=== PATIENT | female | born 1960 | race Caucasian/White ===

== ENCOUNTER 2016-10-11 18:25 | Emergency (ER) | payer OTHER ==
[2016-10-11 18:55] VITALS: BP 143/77
--- NOTE | 2016-10-11 20:46 | UC ---
Bre Resendez Janilya, scribed for Natalia Mercedes MD on 10/11/16 at 1939 . General HPI - HPI Summary HPI Summary: A 56 y/o female came in to [facility] presenting w/ stomach aches starting today at approx 1500. Pt came home and took a nap. However, her condition did not improve. Pt reports nausea, chills, vomiting, and 3 episodes of diarrhea that started at 1800. Denies fever, MEDEROS, rash, urinary problems. Pt took Zofran approx at 1800. There are no family members who have similar conditions. Wants to vomit, but can't (states 2/2 previous surgery). 3 episodes watery diarrhea, no melena / brbpr. Thinks better now (?) No urinary c/o's. No rash. No cp / palpitations / sob. No fever. PMHx asthma, acid reflux PSHx zachary fundiplication surgery date unclear, est > 20 years ago. - History of Current Complaint Chief Complaint: UCGI Stated Complaint: DIARRHEA Hx Obtained From: Patient Onset/Duration: Sudden Onset, Lasting Hours, Still Present Timing: Constant Onset Severity: Moderate Current Severity: Moderate Associated Signs & Symptoms: Positive: Abdominal Pain, Diarrhea, Nausea, Vomiting, Weakness. Negative: Cough, Fever, Headache - Allergy/Home Medications Allergies/Adverse Reactions: Allergies Allergy/AdvReac Type Severity Reaction Status Date / Time Ibuprofen Allergy Hallucinati Verified 06/03/16 10:28 ons Penicillins Allergy Unknown Verified 06/03/16 10:28 Reaction Details Sulfa Antibiotics Allergy Constipatio Verified 06/03/16 10:28 n PMH/Surg Hx/FS Hx/Imm Hx Previously Healthy: No - see hpi. +hx surgeries, none recent Endocrine History Of: Denies: Diabetes, Thyroid Disease Cardiovascular History Of: Denies: Cardiac Disorders, Hypertension, Pacemaker/ICD Respiratory History Of: Reports: Asthma Denies: COPD GI/ History Of: Denies: Ulcer Cancer History Of: Denies: Breast Cancer - Surgical History Surgical History: Yes Surgery Procedure, Year, and Place: HYSTERECTOMY. GALLBLADDER. ZACHARY FUNDOPLICATION more than 20 years ago. LAPARSCOPIC - Family History Known Family History: Positive: Hypertension Negative: Cardiac Disease, Diabetes - Social History Occupation: Employed Full-time Lives: With Family Alcohol Use: None Substance Use Type: None Smoking Status (MU): Never Smoked Tobacco Review of Systems Constitutional: Chills, Fatigue Skin: Negative Eyes: Negative ENT: Negative Respiratory: Negative Cardiovascular: Negative Gastrointestinal: Abdominal Pain, Vomiting, Diarrhea Genitourinary: Negative Motor: Negative Neurovascular: Negative Musculoskeletal: Negative Neurological: Negative Psychological: Negative All Other Systems Reviewed And Are Negative: Yes Physical Exam Triage Information Reviewed: Yes Appearance: Well-Nourished - looks pale. non-diaphoretic, Ill-Appearing, Pain Distress, Obese Vital Signs: Initial Vital Signs Temp 98.2 F 10/11/16 18:50 Pulse 90 10/11/16 18:50 Resp 18 10/11/16 18:50 BP 143/77 10/11/16 18:50 Pulse Ox 94 10/11/16 18:50 Vital Signs Reviewed: Yes Eye Exam: Normal ENT Exam: Normal Neck exam: Normal - no adenopathy appreciated Respiratory Exam: Normal - no dyspnea, no tachypnea, normal respiratory rate Respiratory: Positive: Chest non-tender, Lungs clear, Normal breath sounds, No respiratory distress, No accessory muscle use Cardiovascular Exam: Normal - Heart rate regular, good general skin color, good capillary refill Cardiovascular: Positive: RRR, No Murmur, Pulses Normal, Brisk Capillary Refill Abdominal Exam: Other - + bs, hyperactive. + guarding upper abd. No focal tenderness, general tenderness throughout. No cvat appreciated. Bowel Sounds: Positive: Present Musculoskeletal Exam: Normal - grossly normal. moves all 4 ext's ok. slow ambulation 2/2 pain. Neurological Exam: Normal - nonfocal and grossly intact Psychological Exam: Normal - conversing appropriately Skin Exam: Normal - no reported or visible rashes looks pale non-diaphoretic Course/Dx - Course Course Of Treatment: Considered diff dx's below. Pt is very uncomfortable, looks sick. Already took zofran, but "didn't help.". Recommend transfer to ED for further evaluation and treatment. D/w pt, she expresses understanding and agreement. Will go via EMS. Mr and Ms. Odom were given the opportunity to ask questions, to which I answered to the best of my ability. D/w Dr. Pablo (ED physician at [facility]) at 19:47. Acute abd pain. Nausea. Diarrhea. Volume depletion - Differential Dx - Multi-Symptom Provider Diagnoses: see above. acute abd pain. nausea. diarrhea. volume depletion Discharge - Discharge Plan Condition: Stable Disposition: TRANS HIGHER LVL OF CARE FAC Referrals: Abdias Paul MD [Primary Care Provider] - Additional Instructions: Seek medical attention if symptoms persist/worsen or if new problems develop. The documentation as recorded by the Bre guzman Janilya accurately reflects the service I personally performed and the decisions made by me, Natalia Mercedes MD.
[2016-10-11] MEDS ORDERED: NS 0.9% 500 ML* 500 ML IV SCH (21:00)
== END 2016-10-11 20:42 | disposition short-term general hospital (02) ==
LOC: UCEAST 18:25
DX: R10.10 Upper abdominal pain, unspecified (principal); R11.0 Nausea; R19.7 Diarrhea, unspecified; E86.9 Volume depletion, unspecified; Z88.6 Allergy status to analgesic agent; Z88.0 Allergy status to penicillin; Z88.2 Allergy status to sulfonamides; Z90.49 Acquired absence of other specified parts of digestive tract
CPT/HCPCS: 99213; G0463

== ENCOUNTER 2016-10-11 20:50 | Emergency (ER) | payer OTHER ==
[2016-10-11] MEDS ORDERED: NS 0.9% 1000 ML* 2,000 ML IV ONE (21:36)
[2016-10-11] MEDS ORDERED: Ondansetron INJ* 2 MG/ML VIAL IV ONE (22:03)
[2016-10-11] MEDS ORDERED: Morphine INJ* 4 MG/ML 1 ML CARPUJECT IV ONE (22:03)
[2016-10-11 22:26] LABS: Albumin 4.3 g/dL (3.2-5.2); BUN/Creatinine Ratio 13.9 (8-20); C Reactive Protein 4.8 mg/L (< 5.00); Calcium 9.4 mg/dL (8.6-10.3); EGFR African American 73.2 (>60); EGFR Non-African American 56.9 (>60); Globulin 2.9 g/dL (2-4); Total Bilirubin 0.3 mg/dL (0.2-1.0); Total Protein 7.2 g/dL (6.4-8.9)
[2016-10-11] MEDS ORDERED: NS 0.9% 1000 ML* 1,000 ML IV ONE (22:31)
[2016-10-11 22:33] LABS: Hematocrit 42 % (35-47); Hemoglobin 13.5 g/dl (12.0-16.0); Mean Corpuscular HGB Conc 33 g/dl (31-36); Mean Corpuscular Hemoglobin 30 pg (27-31); Mean Corpuscular Volume 92 fL (80-97); Mean Platelet Volume 8 um3 (7.4-10.4); Red Blood Count 4.53 10^6/ul (4.0-5.4); Red Cell Distribution Width 14 % (10.5-15); White Blood Count 15.6 10^3/ul (3.5-10.8)
[2016-10-11] MEDS ORDERED: Iodixanol* (CONTRAST) 320 MG/ML 100 ML SDV IV ONE (22:45)
[2016-10-11 22:50] LABS: Urine Bilirubin Negative (Negative); Urine Glucose Negative (Negative); Urine Nitrite Negative (Negative)
[2016-10-11] MEDS ORDERED: HYDROmorphone INJ* 1 MG/ML CARPUJECT SYRINGE IV ONE (23:35)
[2016-10-12] MEDS ORDERED: HYDROmorphone INJ* 1 MG/ML CARPUJECT SYRINGE IV ONE (00:44)
[2016-10-12] MEDS ORDERED: Ondansetron INJ* 2 MG/ML VIAL IV ONE (02:09)
[2016-10-12 03:02] VITALS: BP 134/63
--- NOTE | 2016-10-12 06:30 | ED ---
Ramsey Resendez Michael, scribed for Edwar Marquez MD on 10/11/16 at 2243 . GI/ HPI - HPI Summary HPI Summary: 56 y/o female was [facility] from [facility] presenting with nausea and diarrhea that started at 1800 today. The pt reports that the nausea started before the diarrhea, and since the onset of the diarrhea she has had 6-7 episodes. The nausea and diarrhea are aggravated with food and drinking. She also c/o abd cramping that is alleviated with BM. The pt denies arthralgia, vomiting, and hematuria. The PMHx is significant for IBS, GERD, anxiety, and depression. IF THERE IS ONE, PLEASE SEE DICTATION BY DR. MARQUEZ FOR FURTHER INFORMATION - History of Current Complaint Chief Complaint: EDNauseaVomitDiarrh Time Seen by Provider: 10/11/16 22:28 Stated Complaint: NVD Hx Obtained From: Patient, EMS, Medical Records Onset/Duration: Started Hours Ago, Still Present Timing: Constant Severity: Moderate Current Severity: Moderate Pain Intensity: 0 Pain Characteristics: Cramping Associated Signs and Symptoms: Positive: Negative - arthralgia, Nausea, Diarrhea , Abdominal Pain. Negative: Vomiting, Hematuria Aggravating Factor(s): Food Alleviating Factor(s): Bowel Movements - Allergy/Home Medications Allergies/Adverse Reactions: Allergies Allergy/AdvReac Type Severity Reaction Status Date / Time Ibuprofen Allergy Hallucinati Verified 06/03/16 10:28 ons Penicillins Allergy Unknown Verified 06/03/16 10:28 Reaction Details Sulfa Antibiotics Allergy Constipatio Verified 06/03/16 10:28 n PMH/Surg Hx/FS Hx/Imm Hx Endocrine/Hematology History: Denies: Hx Diabetes, Hx Thyroid Disease Cardiovascular History: Denies: Hx Hypertension, Hx Pacemaker/ICD Respiratory History: Reports: Hx Asthma Denies: Hx Chronic Obstructive Pulmonary Disease (COPD) GI History: Reports: Hx Gastroesophageal Reflux Disease, Hx Irritable Bowel Denies: Hx Ulcer Sensory History: Denies: Hx Hearing Aid Psychiatric History: Reports: Hx Anxiety, Hx Depression Denies: Hx Panic Disorder - Cancer History Hx Chemotherapy: No Hx Radiation Therapy: No - Surgical History Surgery Procedure, Year, and Place: HYSTERECTOMY. GALLBLADDER. MIKEL FUNDOPLICATION more than 20 years ago. LAPARSCOPIC Infectious Disease History: No Infectious Disease History: Denies: Hx Hepatitis, Hx Human Immunodeficiency Virus (HIV), Traveled Outside the [place] in Last 30 Days - Family History Known Family History: Positive: Hypertension Negative: Cardiac Disease, Diabetes - Social History Occupation: Employed Full-time Lives: With Family Alcohol Use: None Substance Use Type: Reports: None Smoking Status (MU): Never Smoked Tobacco Review of Systems Negative: Fever Positive: Abdominal Pain - cramping, Diarrhea, Nausea. Negative: Vomiting Negative: hematuria Negative: Arthralgia All Other Systems Reviewed And Are Negative: Yes Physical Exam - Summary Physical Exam Summary: Abdominal Exam GENERAL: Awake, alert, oriented, no acute distress, very pleasant HEENT: Head is normocephalic, atraumatic, anicteric sclera, pink conjunctiva, mucous membranes moist, no erythema, no discharge, no lesions, neck is supple, trachea is midline, no JVD CARDIAC: Regular rate and rhythm, S1, S2, no rub, no murmur, no gallop, 2+ radial and pedal pulses bilaterally RESPIRATORY: Clear to auscultation bilaterally with no rales, rhonchi, or wheezes, non-tender ABDOMEN: Bowel sounds positive, no bruit, soft, non-tender, no tenderness over McBurneys point, negative Madison sign, negative Psoas sign, 2+ femoral pulses , no CVA tenderness EXTREMITIES: No edema, warm, dry, moving all extremities in a grossly normal manner NEUROLOGICAL: Mood is appropriate, moving all extremities in a grossly normal manner SKIN: Pale Triage Information Reviewed: Yes Vital Signs On Initial Exam: Initial Vitals Temp Pulse Resp BP Pulse Ox 97.8 F 93 10 127/62 96 10/11/16 20:51 10/11/16 20:51 10/11/16 20:51 10/11/16 20:51 10/11/16 20:51 Vital Signs Reviewed: Yes Diagnostics - Vital Signs Vital Signs Temp Pulse Resp BP Pulse Ox 10/11/16 22:11 18 10/11/16 20:51 97.8 F 93 10 127/62 96 - Laboratory Lab Results: Lab Results 10/11/16 10/11/16 10/11/16 Range/Units 20:15 20:15 21:22 WBC 15.6 H TNP (3.5-10.8) 10^3/ul RBC 4.53 TNP (4.0-5.4) 10^6/ul Hgb 13.5 TNP (12.0-16.0) g/dl Hct 42 TNP (35-47) % MCV 92 TNP (80-97) fL MCH 30 TNP (27-31) pg MCHC 33 TNP (31-36) g/dl RDW 14 TNP (10.5-15) % Plt Count 379 TNP (150-450) 10^3/ul MPV 8 TNP (7.4-10.4) um3 Neut % (Auto) 84.0 H TNP (38-83) % Lymph % (Auto) 8.4 L TNP (25-47) % Graham % (Auto) 5.7 TNP (1-9) % Eos % (Auto) 0.7 TNP (0-6) % Baso % (Auto) 1.2 TNP (0-2) % Absolute Neuts (auto) 13.1 H TNP (1.5-7.7) 10^3/ul Absolute Lymphs (auto) 1.3 TNP (1.0-4.8) 10^3/ul Absolute Monos (auto) 0.9 H TNP (0-0.8) 10^3/ul Absolute Eos (auto) 0.1 TNP (0-0.6) 10^3/ul Absolute Basos (auto) 0.2 TNP (0-0.2) 10^3/ul Absolute Nucleated RBC 0 TNP 10^3/ul Nucleated RBC % 0 TNP Sodium 138 (133-145) mmol/L Potassium 4.0 (3.5-5.0) mmol/L Chloride 103 (101-111) mmol/L Carbon Dioxide 25 (22-32) mmol/L Anion Gap 10 (2-11) mmol/L BUN 14 (6-24) mg/dL Creatinine 1.01 H (0.51-0.95) mg/dL Est GFR ( Amer) 73.2 (>60) Est GFR (Non-Af Amer) 56.9 (>60) BUN/Creatinine Ratio 13.9 (8-20) Glucose 157 H (70-100) mg/dL Calcium 9.4 (8.6-10.3) mg/dL Total Bilirubin 0.30 (0.2-1.0) mg/dL AST 16 (13-39) U/L ALT 19 (7-52) U/L Alkaline Phosphatase 74 (34-104) U/L C-Reactive Protein 4.80 (< 5.00) mg/L Total Protein 7.2 (6.4-8.9) g/dL Albumin 4.3 (3.2-5.2) g/dL Globulin 2.9 (2-4) g/dL Albumin/Globulin Ratio 1.5 (1-3) Lipase 45 (11.0-82.0) U/L Result Diagrams: 10/11/16 21:22 10/11/16 20:15 Lab Statement: Any lab studies that have been ordered have been reviewed, and results considered in the medical decision making process. - CT CT ABD/PEL CT Interpretation: Positive (See Comments) - QUESTION OF GASTRIC POLYPS VERUS PROMINENT RUGAE. NONOBSTRUCTIVE GASEOUS DISTENTION OF THE STOMACH, A POSSIBLE SOURCE OF DISCOMFORT. NO INFLAMMATORY PROCESS IDENTIFIED IN THE ABDOMEN OR PELVIS. NO ABDOMINAL MASS, ADENOPATHY OR COLLECTION SEEN. CT Interpretation Completed By: Radiologist KACIE Course/Dx - Diagnoses Provider Diagnoses: Diarrhea, Abdominal pain, Gastric polyps Discharge - Discharge Plan Condition: Improved Disposition: HOME Patient Education Materials: Gastric Polyps (GEN) Referrals: Abdias Paul MD [Primary Care Provider] - Additional Instructions: You will follow up with Dr. Paul on Friday10/14/16 to rule out serious condition such as cancer. PLEASE RETURN TO THE EMERGENCY DEPARTMENT FOR NAUSEA, VOMITING, FEVER, PHOTOPHOBIA, CHEST PAIN, OR IF SYMPTOMS WORSEN. The documentation as recorded by the Ramsey guzman Michael accurately reflects the service I personally performed and the decisions made by me, Edwar Marquez MD.
--- NOTE | 2016-10-12 07:15 | RAD ---
INDICATION: Abdominal pain. COMPARISON: There are no prior studies available for comparison. TECHNIQUE: A CT scan of the abdomen and pelvis was performed with intravenous and oral contrast following intravenous injection of 100 ml of Visipaque 320 nonionic contrast. Contiguous axial sections were obtained from the lung bases through the symphysis pubis. Images were reconstructed in the coronal and sagittal planes. FINDINGS: The lung bases are clear. No pleural effusion is present. The liver and spleen are normal in size without significant focal abnormality. The patient is status post cholecystectomy. The pancreas appears to be within normal limits. The kidneys and adrenal glands are normal in size. No hydronephrosis is seen. No significant focal renal abnormality is seen. The aorta is normal in caliber with mild calcific plaque present. No significant enlarged retroperitoneal lymph nodes are seen. There is moderate gastric distention. There is suggestion of multiple small gastric polyps versus prominent gastric folds. There are surgical several surgical clips adjacent to the gastric fundus and cardia possibly from a prior Cortez fundoplication. The small bowel and colon appear nondistended. The appendix is not visualized. No inflammatory changes are seen in the right lower quadrant. There is mild descending and sigmoid diverticulosis without evidence for diverticulitis. The patient is status post hysterectomy. No free intraperitoneal air or fluid is seen. No significant focal osseous abnormality is seen. IMPRESSION: 1. MODERATE GASTRIC DISTENTION. IN ADDITION THERE IS SUGGESTION OF MULTIPLE SMALL GASTRIC POLYPS LESS LIKELY PROMINENT GASTRIC FOLDS. CONSIDER ENDOSCOPY FOR FURTHER EVALUATION. 2. STATUS POST CHOLECYSTECTOMY AND HYSTERECTOMY. 3. POSTSURGICAL CHANGES IN THE LEFT UPPER QUADRANT LIKELY FROM A PRIOR FUNDOPLICATION.
== END 2016-10-12 03:07 | disposition home or self-care (01) ==
LOC: ED 20:50
DX: K31.7 Polyp of stomach and duodenum (principal); R11.0 Nausea; R19.7 Diarrhea, unspecified; R10.9 Unspecified abdominal pain
CPT/HCPCS: 36415; 74177; 80053; 81003; 83690; 85025; 86140; 96374; 96375; 99283; J1170; J2270; J2405; Q9967

== ENCOUNTER 2018-05-21 16:07 | Emergency (ER) | payer OTHER ==
--- OUTSIDE RECORDS SUMMARY | 2018-05-21 16:16 | XMS REPORT ---
:1960 External Reference #:[id number] Author Organization [employer] Address [address] [place] [address] [place] [address] Phone [phone] Care Team Providers Name Role Phone Abdias Paul MD Primary Care Physician Unavailable Payers Type Date Identification Numbers Payment Provider Subscriber Commercial Policy Number: [id number] [employer] Rosangela Odom PayID: [id number] [address] [place] [address] Medigap Part B Effective: 2017 Policy Number: For Life Jeff Odom [id number] PayID: [id number] [address] [place] [address] Problems Description No Information Family History Date Family Member(s) Problem(s) Comments General Heart Disease General Cancer Social History Type Date Description Comments Lives With Occupation [employer] ETOH Use Denies alcohol use Smoking Patient has never smoked Exercise Type/Frequency Does not exercise regularly Allergies, Adverse Reactions, Alerts Date Description Reaction Status Severity Comments 04/11/2014 Penicillins active 04/11/2014 Sulfa Antibiotics active 04/11/2014 Ibuprofen active 04/11/2014 Ambien active hallucinations 04/11/2014 [place] active Medications Medication Date Status Form Strength Qnty SIG Indications Ordering Provider Diclofenac 04/23/ Active Gel 1% 100gm apply 4 Dorcas Sodium 2018 times Guan, daily as M.D. needed for pain Abilify 04/11/ Active Tablets 15mg 1 by mouth Dirk 2013 every day Omar Dinero Oxycodone-Acet / Active Tablets 5-325mg One tab as Unknown aminophen 0000 needed for knee pain up to 4 times per day Hydrocodone-Ac / Active Tablets 5-325mg 1 by mouth Unknown etaminophen 0000 every 4-6 hours prn migraine pain Montelukast / Active Tablets 10mg 1 tab by Unknown Sodium 0000 mouth every day Proair HFA / Active Aerosol 108(90Base 2 puffs by Unknown 0000 ) mcg/Act mouth every 4 hours as needed Clarinex / Active Tablets 5mg 1 by mouth Unknown 0000 every day Pantoprazole / Active Tablets DR 40mg 1 by mouth Unknown Sodium 0000 two times a day Alprazolam / Active Tablets 0.5mg 1 by mouth Unknown 0000 every evening Escitalopram / Active Tablets 20mg 1 by mouth Unknown Oxalate 0000 every day Modafinil / Active Tablets 200mg 2 by mouth Unknown 0000 every morning Aspirin / Active Tablets 81mg 1 by mouth Unknown 0000 every day Vitamin D High / Active Capsules 1000Unit 1 by mouth Unknown Potency 0000 every day Calcium 600+D / Active Unknown 0000 Fiber / Active one tab Unknown 0000 daily Flintstones / Active Unknown Plus Iron 0000 Fenofibrate / Active Tablets 48mg 1 by mouth Unknown 0000 every day Medications Administered in Office Medication Date Status Form Strength Qnty SIG Indications Ordering Provider Depomedrol Administered Injection Dorcas 40MG 018 Omar Guan Vital Signs Date Vital Result Comment 05/21/2018 Height 62 inches 5'2" Weight 185.00 lb Heart Rate 72 /min BP Systolic 100 mmHg BP Diastolic 68 mmHg Respiratory Rate 12 /min Pain Level 0 BMI (Body Mass Index) 33.8 kg/m2 04/23/2018 Height 62 inches 5'2" Weight 177.00 lb Heart Rate 60 /min BP Systolic Sitting 134 mmHg BP Diastolic Sitting 68 mmHg Pain Level 3 BMI (Body Mass Index) 32.4 kg/m2 11/12/2017 Height 62 inches 5'2" Weight 177.00 lb Heart Rate 66 /min BP Systolic 124 mmHg BP Diastolic 68 mmHg Respiratory Rate 16 /min Body Temperature 97.6 F Pain Level 4 BMI (Body Mass Index) 32.4 kg/m2 04/11/2014 Height 62 inches 5'2" Weight 178.00 lb Heart Rate 78 /min BP Systolic 138 mmHg BP Diastolic 80 mmHg BMI (Body Mass Index) 32.6 kg/m2 Results Description No Information Procedures Date CPT Code Description Status 05/21/2018 61028 Inject/Drain Joint/Bursa Small W/O US Completed 04/11/2014 02462 Rad Exam; Pelvis Completed Encounters Type Date Location Provider CPT E/M Dx Office Visit 04/23/2018 [facility] Dorcas Guan, 95534 M25.531 3:15p Of C.MNitza Nelson Office Visit 11/12/2017 [facility] Brianna Kasper, 02656 M79.641 1:30p Of C.M.[place] RPA-C Office Visit 04/11/2014 [facility] Agustín Dinero M.D. 19569 727.09 1:15p Of C.M.ALori Plan of Care 05/21/2018 - Dorcas Guan M.D.M25.531 Pain in right wristFollow up:Follow up : As [id number] Other articular cartilage disorders, right wrist
--- OUTSIDE RECORDS SUMMARY | 2018-05-21 16:17 | XMS REPORT ---
:1960 External Reference #:[id number] Author Organization [facility] Address [address] [place] [address] Phone [phone] Care Team Providers Name Role Phone Abdias Paul M.D. 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 Primary Care Physician Unavailable Payers Type Date Identification Numbers Payment Provider Subscriber Commercial Effective: Policy Number: [id number] [facility] Rosangela Odom 2014 Expires: 2018 PayID: [id number] [address] [place] [address] [facility] Effective: Policy Number: [facility] Rosangela Odom 2018 [id number] PayID: [id number] [address] [place] [address] [employer] Policy Number: [id number] [employer] / Jeff Odom PayID: [id number] [address] (Formerly ) [place] [address] [facility] Effective: Policy Number: [facility] Jeff Odom [id number] [facility] Expires: 2014 Group Number: [id number] [address] [place] [address] Problems Date Description Provider Status Onset: 09/25/2015 Body mass index (BMI) 32.0-32.9, adult Mario Mackey M.D. Active Onset: 09/25/2015 Mild persistent asthma Mario Mackey M.D. Active Onset: 09/25/2015 Allergic rhinitis due to pollen Mario Mackey M.D. Active Onset: 03/27/2015 Body Mass Index 33.0-33.9 Adult Mario Mackey M.D. Active Onset: 12/19/2014 Cough Mario Mackey M.D. Active Onset: 12/19/2014 Allergic rhinitis Mario Mackey M.D. Active Onset: 10/10/2014 Cough Mario Mackey M.D. Active Onset: 10/10/2014 Rhinitis Allergic Due To Other Allergen Mario Mackey M.D. 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 Home Environment Has central air Home Environment Stairs are present Home Environment Unfinished Basement Home Environment The basement is dry Home Environment Cotton Comforter Home Environment Mattress is 1 year old Home Environment Mattress is encased in an allergy proof case Home Environment Rubber Mattress Home Environment Pillows are encased in an allergy proof case Home Environment Pillows are polyester Home Environment Does not use a dehumidifier Home Environment There are draperies in the home Home Environment The home is felisa Home Environment The floors are carpeted Home Environment The floors are wood Home Environment Uses propane gas heating Home Environment [place] Home Environment Water Source: Well Smoke-Free Home is smoke-free Smoke-Free Work is smoke-free 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 ETOH Use Denies alcohol use Smoking Patient has never smoked Recreational Drug Use Denies Drug Use Allergies, Adverse Reactions, Alerts Date Description Reaction Status Severity Comments 01/15/2013 Penicillin active 01/15/2013 Amoxicillin active 01/15/2013 Ibuprofen active halucinations 01/15/2013 Sulfa active Medications Medication Date Status Form Strength Qnty SIG Indications Ordering Provider Spiriva 11/17/ Active Aerosol 1.25mcg/Ac 4gm 2 puffs once J45.30 Lyudmila Respimat 2018 t daily ANGIE Díaz Asmanex 10/10/ Active Aerosol 220mcg/Inh 3units 2 puff once J30.2 Lyudmila Twisthaler 60 2015 a day Uldrich, Metered Doses [employer]OL SYSTEMS DEVELOPER-C Montelukast 09/08/ Active Tablets 10mg 90tabs take 1 Lyudmila Sodium 2013 tablet every Uldrich, evening [employer] SYSTEMS DEVELOPER-C Proair HFA 01/15/ Active Aerosol 108(90Base 1units two Tesha 2012 ) mcg/Act inhalations Farley-Jam every 4 kolton, hours as CONTROL SYSTEMS DEVELOPER-C needed for cough, wheezing or chest tightness Abilify / Active Tablets 10mg Take 1 Unknown 0000 tablet every evening Provigil / Active Tablets 200mg two every Unknown 0000 morning Lexapro / Active Tablets 20mg two tablets Unknown 0000 every eveniing Alprazolam / Active Tablets 0.5mg one tab Unknown 0000 every evening Clarinex / Active Tablets 5mg 90tabs 1 by mouth Lyudmila 0000 every day 90 , supply CONTROL SYSTEMS DEVELOPER-C Calcium 600 + / Active Tablets 600-200mg- 2 tablets Unknown D 0000 Unit daily Fiber Complete / Active Tablets one tablet Unknown 0000 once a day Pantoprazole / Active Tablets 40mg one every Unknown Sodium 0000 DR morning and one in the evening. Ondansetron / Active Tablets 4mg dissolve on Unknown 0000 Dispers tongue up to every 8 hrs. Carafate / Active Tablets 1gm 4 times a Unknown 0000 day before each meal and at bedtime. Fenofibrate / Active Tablets 48mg Take 1 Unknown 0000 Tablet By Mouth Every Day Medications Administered in Office Medication Date Status Form Strength Qnty SIG Indications Ordering Provider Injection 05/11/20 Administered Injection Allergy 18 Injection Injection 04/27/20 Administered Injection Allergy 18 Injection Injection 04/13/20 Administered Injection Allergy 18 Injection Injection 03/30/20 Administered Injection Allergy 18 Injection Injection 03/16/20 Administered Injection Allergy 18 Injection Injection 03/09/20 Administered Injection Allergy 18 Injection Injection 03/02/20 Administered Injection Allergy 18 Injection Injection 02/19/20 Administered Injection Allergy 18 Injection Injection 02/03/20 Administered Injection Allergy 18 Injection Injection 01/22/20 Administered Injection Allergy 18 Injection Injection 01/08/20 Administered Injection Allergy 18 Injection Injection 12/25/19 Administered Injection Allergy 18 Injection Injection 12/09/19 Administered Injection Allergy 18 Injection Injection 11/25/19 Administered Injection Allergy 18 Injection Injection 11/10/19 Administered Injection Allergy 18 Injection Injection 10/27/19 Administered Injection Allergy 18 Injection Injection 10/13/19 Administered Injection Allergy 18 Injection Injection 09/29/19 Administered Injection Allergy 18 Injection Injection 09/17/20 Administered Injection Allergy 17 Injection Injection 09/17/20 Administered Injection Allergy 17 Injection Injection 09/01/20 Administered Injection Allergy 17 Injection Injection 08/20/20 Administered Injection Allergy 17 Injection Injection 08/04/20 Administered Injection Allergy 17 Injection Injection 07/21/20 Administered Injection Allergy 17 Injection Injection 07/07/20 Administered Injection Allergy 17 Injection Injection 06/23/20 Administered Injection Allergy 17 Injection Injection 06/09/20 Administered Injection Allergy 17 Injection Injection 05/28/20 Administered Injection Allergy 17 Injection Injection 05/12/20 Administered Injection Allergy 17 Injection Injection 04/28/20 Administered Injection Allergy 17 Injection Injection 04/14/20 Administered Injection Allergy 17 Injection Injection 04/02/20 Administered Injection Allergy 17 Injection Injection 03/19/20 Administered Injection Allergy 17 Injection Injection 03/05/20 Administered Injection Allergy 17 Injection Injection 02/20/20 Administered Injection Krysta Castillo M.D. Injection 02/20/20 Administered Injection Allergy 17 Injection Injection 02/06/20 Administered Injection Allergy 17 Injection Injection 01/21/20 Administered Injection Krysta Castillo M.D. Injection 01/21/20 Administered Injection Allergy 17 Injection Injection 12/31/19 Administered Injection Allergy 17 Injection Injection 12/17/19 Administered Injection Allergy 17 Injection Injection 12/07/19 Administered Injection Allergy 17 Injection Injection 11/21/19 Administered Injection Allergy 17 Injection Injection 10/28/19 Administered Injection Allergy 17 Injection Injection 10/09/19 Administered Injection Allergy 17 Injection Injection 09/25/19 Administered Injection Allergy 17 Injection Injection 09/09/20 Administered Injection Allergy 16 Injection Injection 08/23/20 Administered Injection Allergy 16 Injection Injection 08/09/20 Administered Injection Allergy 16 Injection Injection 07/26/20 Administered Injection Allergy 16 Injection Injection 07/15/20 Administered Injection Allergy 16 Injection Injection 07/01/20 Administered Injection Troy WLori Ramirez M.D. Injection 07/01/20 Administered Injection Allergy 16 Injection Injection 06/17/20 Administered Injection Allergy 16 Injection Injection 05/31/20 Administered Injection Allergy 16 Injection Injection 05/13/20 Administered Injection Allergy 16 Injection Injection 04/29/20 Administered Injection Allergy 16 Injection Injection 04/15/20 Administered Injection Allergy 16 Injection Injection 04/01/20 Administered Injection Allergy 16 Injection Injection 03/20/20 Administered Injection Allergy 16 Injection Injection 03/06/20 Administered Injection Allergy 16 Injection Injection 02/21/20 Administered Injection Allergy 16 Injection Injection 02/05/20 Administered Injection Allergy 16 Injection Injection 01/17/20 Administered Injection Allergy 16 Injection Injection 01/01/20 Administered Injection Allergy 16 Injection Injection 12/18/19 Administered Injection Allergy 16 Injection Injection 12/04/19 Administered Injection Allergy 16 Injection Injection 11/20/19 Administered Injection Allergy 16 Injection Injection 11/03/19 Administered Injection Allergy 16 Injection Injection 10/16/19 Administered Injection Allergy 16 Injection Injection 10/02/19 Administered Injection Allergy 16 Injection Injection 09/18/20 Administered Injection Allergy 15 Injection Injection 09/06/20 Administered Injection Allergy 15 Injection Injection 08/23/20 Administered Injection Allergy 15 Injection Injection 08/07/20 Administered Injection Allergy 15 Injection Injection 07/26/20 Administered Injection Allergy 15 Injection Injection 07/12/20 Administered Injection Allergy 15 Injection Injection 06/28/20 Administered Injection Allergy 15 Injection Injection 06/16/20 Administered Injection Allergy 15 Injection Injection 06/02/20 Administered Injection Allergy 15 Injection Injection 05/17/20 Administered Injection Allergy 15 Injection Injection 05/03/20 Administered Injection Allergy 15 Injection Injection 04/19/20 Administered Injection Allergy 15 Injection Injection 04/05/20 Administered Injection Allergy 15 Injection Injection 03/22/20 Administered Injection Allergy 15 Injection Injection 03/08/20 Administered Injection Allergy 15 Injection Injection 02/16/20 Administered Injection Allergy 15 Injection Injection 02/02/20 Administered Injection Allergy 15 Injection Injection 01/17/20 Administered Injection Allergy 15 Injection Injection 01/03/20 Administered Injection Allergy 15 Injection Injection 12/20/19 Administered Injection Allergy 15 Injection Injection 12/08/19 Administered Injection Allergy 15 Injection Injection 11/22/19 Administered Injection Allergy 15 Injection Injection 11/07/19 Administered Injection Allergy 15 Injection Injection 10/24/19 Administered Injection Allergy 15 Injection Injection 10/10/19 Administered Injection Allergy 15 Injection Injection 09/26/19 Administered Injection Allergy 15 Injection Injection 09/12/20 Administered Injection Allergy 14 Injection Injection 08/29/20 Administered Injection Allergy 14 Injection Injection 08/10/20 Administered Injection Allergy 14 Injection Injection 07/27/20 Administered Injection Allergy 14 Injection Injection 07/13/20 Administered Injection Allergy 14 Injection Injection 06/29/20 Administered Injection Allergy 14 Injection Injection 06/13/20 Administered Injection Allergy 14 Injection Injection 06/01/20 Administered Injection Allergy 14 Injection Injection 05/18/20 Administered Injection Allergy 14 Injection Injection 05/02/20 Administered Injection Allergy 14 Injection Injection 04/11/20 Administered Injection Allergy 14 Injection Injection 03/28/20 Administered Injection Allergy 14 Injection Injection 03/14/20 Administered Injection Allergy 14 Injection Injection 03/14/20 Administered Injection Allergy 14 Injection Injection 02/29/20 Administered Injection Allergy 14 Injection Injection 02/08/20 Administered Injection Allergy 14 Injection Injection 01/25/20 Administered Injection Umesh 14 Mary MFlor. Injection 01/25/20 Administered Injection Allergy 14 Injection Injection 01/11/20 Administered Injection Allergy 14 Injection Injection 12/28/19 Administered Injection Allergy 14 Injection Injection 12/14/19 Administered Injection Allergy 14 Injection Injection 11/30/19 Administered Injection Allergy 14 Injection Injection 11/15/19 Administered Injection Allergy 14 Injection Injection 11/01/19 Administered Injection Allergy 14 Injection Injection 10/18/19 Administered Injection Allergy 14 Injection Injection 10/04/19 Administered Injection Allergy 14 Injection Injection 09/20/20 Administered Injection Allergy 13 Injection Injection 09/08/20 Administered Injection Allergy 13 Injection Injection 08/25/20 Administered Injection Allergy 13 Injection Injection 08/11/20 Administered Injection Allergy 13 Injection Injection 07/28/20 Administered Injection Allergy 13 Injection Injection 07/14/20 Administered Injection Allergy 13 Injection Injection 06/30/20 Administered Injection Allergy 13 Injection Injection 06/16/20 Administered Injection Allergy 13 Injection Injection 05/31/20 Administered Injection Allergy 13 Injection Injection 05/17/20 Administered Injection Allergy 13 Injection Injection 05/05/20 Administered Injection Allergy 13 Injection Injection 04/19/20 Administered Injection Allergy 13 Injection Injection 03/29/20 Administered Injection Allergy 13 Injection Injection 03/15/20 Administered Injection Allergy 13 Injection Injection 03/01/20 Administered Injection Allergy 13 Injection Injection 02/18/20 Administered Injection Allergy 13 Injection Injection 02/04/20 Administered Injection Allergy 13 Injection Injection 01/16/20 Administered Injection Allergy 13 Injection Injection 12/31/19 Administered Injection Allergy 13 Injection Injection 12/17/19 Administered Injection Allergy 13 Injection Injection 12/03/19 Administered Injection Umesh 13 Mary, M.D. Injection 11/18/19 Administered Injection Umesh 13 Mary M.D. Injection 11/02/19 Administered Injection Umesh 13 Mary, M.D. Injection 10/21/19 Administered Injection Umesh 13 Mary M.D. Injection 10/07/19 Administered Injection Umesh 13 Mary M.D. Injection 09/23/19 Administered Injection Umesh 13 Mary M.D. Injection 09/07/20 Administered Injection Umesh 12 Mary M.D. Injection 08/24/20 Administered Injection Umesh 12 Mary M.D. Injection 08/03/20 Administered Injection Umesh 12 Mary M.D. Injection 07/20/20 Administered Injection Umesh 12 Mary M.D. Injection 07/06/20 Administered Injection Umesh 12 Mary M.D. Injection 06/24/20 Administered Injection Umesh 12 Mary M.D. Injection 06/10/20 Administered Injection Umesh 12 Mary MFlor. Injection 05/27/20 Administered Injection Umesh 12 Mary M.D. Injection 05/13/20 Administered Injection Umesh 12 Mary M.D. Injection 05/13/20 Administered Injection Umesh 12 Mary M.Florencio. Injection 04/29/20 Administered Injection Umesh 12 Mary MLoriD. Injection 04/13/20 Administered Injection Umesh 12 Mary M.D. Injection 03/30/20 Administered Injection Umesh 12 Agata Hernandez. Injection 03/16/20 Administered Injection Umesh 12 Mary M.D. Injection 03/02/20 Administered Injection Umesh 12 Mary M.D. Injection 02/19/20 Administered Injection Umesh 12 Mary M.D. Injection 02/05/20 Administered Injection Umesh 12 Mary M.D. Injection 01/22/20 Administered Injection Umesh 12 Mary M.D. Injection 01/08/20 Administered Injection Umesh 12 Mary M.D. Injection 12/25/19 Administered Injection Umesh 12 Mary M.D. Injection 12/11/19 Administered Injection Umesh 12 Mary M.D. Injection 11/27/19 Administered Injection Umesh 12 Mary, M.D. Injection 11/11/19 Administered Injection Umesh 12 Mary, M.D. Injection 10/28/19 Administered Injection Umesh 12 Mary, M.D. Injection 10/16/19 Administered Injection Umesh 12 Mary, M.D. Injection 10/02/19 Administered Injection Umesh 12 Mary, M.D. Injection 09/18/20 Administered Injection Umesh 11 Mary, M.D. Injection 09/04/20 Administered Injection Umesh 11 Mary, M.D. Injection 08/21/20 Administered Injection Umesh 11 Mary, M.D. Injection 08/07/20 Administered Injection Umesh 11 Mary, M.D. Injection 07/24/20 Administered Injection Umesh 11 Mary, M.D. Injection 07/10/20 Administered Injection Umesh 11 Mary, M.D. Injection 06/24/20 Administered Injection Umesh 11 Mary, M.D. Injection 06/10/20 Administered Injection Umesh 11 Mary, M.D. Injection 05/20/20 Administered Injection Umesh 11 Mary, M.D. Injection 05/06/20 Administered Injection Umesh 11 Mary, M.D. Injection 04/22/20 Administered Injection Umesh 11 Mary, M.D. Injection 04/08/20 Administered Injection Umesh 11 Mary, M.D. Injection 03/27/20 Administered Injection Umesh 11 Mary, M.D. Injection 03/11/20 Administered Injection Umesh 11 Mary, M.D. Injection 02/26/20 Administered Injection Umesh 11 Mary, M.D. Injection 02/12/20 Administered Injection Umesh 11 Mary, M.D. Injection 01/29/20 Administered Injection Umesh 11 Mary, M.D. Injection 01/15/20 Administered Injection Umesh 11 Mary, M.D. Injection 01/01/20 Administered Injection Umesh 11 Mary, M.D. Injection 12/20/19 Administered Injection Umesh 11 Mary, M.D. Injection 12/04/19 Administered Injection Umesh 11 Mary, M.D. Injection 11/19/19 Administered Injection Umesh 11 Mary, M.D. Injection 11/05/19 Administered Injection Umesh 11 Omar Hernandez Injection 10/22/19 Administered Injection Umesh 11 Mary MLoriDLori Injection 10/08/19 Administered Injection Elva Alfaro MD Injection 09/24/19 Administered Injection Umesh 11 Omar Hernandez Injection 08/27/20 Administered Injection Umesh 10 Omar Hernandez Injection 07/30/20 Administered Injection Umesh 10 Omar Hernandez Injection 07/16/20 Administered Injection Umesh 10 Dottie HernandezDLori Injection 07/02/20 Administered Injection Umesh 10 Omar Hernandez Injection 06/18/20 Administered Injection Umesh 10 Dottie HernandezDLori Injection 06/04/20 Administered Injection Umesh 10 Dottie HernandezDLori Injection 05/16/20 Administered Injection Umesh 10 Omar Hernandez Injection 04/23/20 Administered Injection Umesh 10 Omar Hernandez Injection 04/11/20 Administered Injection Umesh 10 Maria Teresa Hernandez.DLori Injection 03/28/20 Administered Injection Umesh 10 Maria Teresa Hernandez.DLori Injection 03/14/20 Administered Injection Umesh 10 Omar Hernandez Injection 02/29/20 Administered Injection Umesh 10 Agata Hernandez. Injection 02/17/20 Administered Injection Umesh 10 Dottie HernandezD. Injection 01/30/20 Administered Injection Umesh 10 Omar Hernandez Injection 01/16/20 Administered Injection Umesh 10 Omar Hernandez Injection 01/02/20 Administered Injection Umesh 10 Mary M.DLori Injection 12/12/19 Administered Injection Umesh 10 Maria Teresa Hernandez.DLori Injection 11/28/19 Administered Injection Umesh 10 Mary M.D. Injection 11/13/19 Administered Injection Umesh 10 Mary M.D. Injection 10/23/19 Administered Injection Randell 10 Omar Gunderson Injection 10/09/19 Administered Injection Randell Naz Gunderson M.D. Injection 09/27/19 Administered Injection Umesh 10 Omar Hernandez Injection 09/11/20 Administered Injection Umesh 09 Mary, M.D. Injection 08/28/20 Administered Injection Umesh 09 Mary, M.D. Injection 08/14/20 Administered Injection Umesh 09 Mary, M.D. Injection 07/31/20 Administered Injection Umesh 09 Mary, M.D. Injection 07/17/20 Administered Injection Umesh 09 Mary, M.D. Injection 07/03/20 Administered Injection Umesh 09 Mary, M.D. Injection 06/19/20 Administered Injection Umesh 09 Mary, M.D. Injection 06/05/20 Administered Injection Umesh 09 Mary, M.D. Injection 05/15/20 Administered Injection Umesh 09 Mary, M.D. Injection 05/03/20 Administered Injection Umesh 09 Mary, M.D. Injection 04/17/20 Administered Injection Umesh 09 Mary, M.D. Injection 04/03/20 Administered Injection Umesh 09 Mary, M.D. Injection 03/17/20 Administered Injection Umesh 09 Mary, M.D. Injection 03/03/20 Administered Injection Umesh 09 Mary, M.D. Injection 02/09/20 Administered Injection Umesh 09 Mary, M.D. Injection 01/24/20 Administered Injection Umesh 09 Mary, M.D. Injection 01/10/20 Administered Injection Umesh 09 Mary, M.D. Injection 12/27/19 Administered Injection Umesh 09 Mary, M.D. Injection 12/13/19 Administered Injection Umesh 09 Mary, M.D. Injection 11/29/19 Administered Injection Umesh 09 Mary, M.D. Injection 11/07/19 Administered Injection Umesh 09 Mary, M.D. Injection 10/24/19 Administered Injection Umesh 09 Mary, M.D. Injection 10/10/19 Administered Injection Umesh 09 Mary, M.D. Injection 09/26/19 Administered Injection Umesh 09 Mary, M.D. Injection 09/12/20 Administered Injection Umesh 08 Mary, M.D. Injection 08/08/20 Administered Injection Umesh 08 Mary, M.D. Injection 07/25/20 Administered Injection Umesh 08 Mary, M.D. Injection 07/11/20 Administered Injection Umesh 08 Mary, M.D. Injection 06/27/20 Administered Injection Umesh 08 Mary, M.D. Injection 06/13/20 Administered Injection Umesh 08 Mary, M.D. Injection 05/30/20 Administered Injection Umesh 08 Mary, M.D. Injection 05/16/20 Administered Injection Umesh 08 Mary, M.D. Injection 04/29/20 Administered Injection Umesh 08 Mary, M.D. Injection 04/18/20 Administered Injection Umesh 08 Mary, M.D. Injection 04/04/20 Administered Injection Umesh 08 Mary, M.D. Injection 03/18/20 Administered Injection Umesh 08 Mary, M.D. Injection 03/04/20 Administered Injection Umesh 08 Mary, M.D. Injection 02/17/20 Administered Injection Umesh 08 Mary, M.D. Injection 02/01/20 Administered Injection Umesh 08 Mary, M.D. Injection 01/18/20 Administered Injection Umesh 08 Mary, M.D. Injection 01/04/20 Administered Injection Umesh 08 Mary, M.D. Injection 12/21/19 Administered Injection Umesh 08 Mary, M.D. Injection 12/04/19 Administered Injection Umesh 08 Mary, M.D. Injection 11/23/19 Administered Injection Umesh 08 Mary, M.D. Injection 11/09/19 Administered Injection Umesh 08 Mary, M.D. Injection 10/26/19 Administered Injection Umseh 08 Mary, M.D. Injection 10/12/19 Administered Injection Umesh 08 Mary, M.D. Injection 09/28/19 Administered Injection Umesh 08 Mary, M.D. Injection 09/18/20 Administered Injection Umesh 07 Mary, M.D. Injection 08/31/20 Administered Injection Umesh 07 Mary, M.D. Injection 08/17/20 Administered Injection Umesh 07 Mary, M.D. Injection 07/27/20 Administered Injection Umesh 07 Mary, M.D. Injection 07/13/20 Administered Injection Umesh 07 Mary, M.D. Injection 06/29/20 Administered Injection Umesh 07 Mary, M.D. Injection 06/15/20 Administered Injection Umesh 07 Mary, M.D. Injection 06/01/20 Administered Injection Umesh 07 Mary, M.D. Injection 05/11/20 Administered Injection Umesh 07 Mary, M.D. Injection 04/27/20 Administered Injection Umesh 07 Mary, M.D. Injection 04/15/20 Administered Injection Umesh 07 Mary, M.D. Injection 04/01/20 Administered Injection Umesh 07 Mary, M.D. Injection 03/18/20 Administered Injection Umesh 07 Mary, M.D. Injection 03/04/20 Administered Injection Umesh 07 Mary, M.D. Injection 02/19/20 Administered Injection Umesh 07 Mary, M.D. Injection 02/03/20 Administered Injection Umesh 07 Mary, M.D. Injection 01/20/20 Administered Injection Umesh 07 Mary, M.D. Injection 01/08/20 Administered Injection Umesh 07 Mary, M.D. Injection 12/23/19 Administered Injection Umesh 07 Mary, M.D. Injection 12/11/19 Administered Injection Umesh 07 Mary, M.D. Injection 11/25/19 Administered Injection Umesh 07 Mary, M.D. Injection 11/10/19 Administered Injection Umesh 07 Mary, M.D. Injection 10/27/19 Administered Injection Umesh 07 Mary, M.D. Injection 10/13/19 Administered Injection Umesh 07 Mary, M.D. Injection 10/01/19 Administered Injection Umesh 07 Mary, M.D. Injection 09/17/20 Administered Injection Umesh 06 Mary, M.D. Injection 09/01/20 Administered Injection Umesh 06 Mary, M.D. Injection 08/18/20 Administered Injection Umesh 06 Mary, M.D. Injection 07/28/20 Administered Injection Umesh 06 Mary, M.D. Injection 07/14/20 Administered Injection Umesh 06 Mary, M.D. Injection 06/30/20 Administered Injection Umesh 06 Mary, M.D. Injection 06/09/20 Administered Injection Umesh 06 Mary, M.D. Injection 05/28/20 Administered Injection Umesh 06 Mary, M.D. Injection 05/12/20 Administered Injection Umesh 06 Mayr, M.D. Injection 04/30/20 Administered Injection Umesh 06 Mary, M.D. Injection 04/16/20 Administered Injection Umesh 06 Mary, M.D. Injection 04/02/20 Administered Injection Umesh 06 Mary, M.D. Injection 03/19/20 Administered Injection Umesh 06 Mary, M.D. Injection 03/07/20 Administered Injection Umesh 06 Mary, M.D. Injection 02/20/20 Administered Injection Umesh 06 Mary, M.D. Injection 02/04/20 Administered Injection Umesh 06 Mary, M.D. Injection 01/21/20 Administered Injection Umesh 06 Mary, M.D. Injection 01/07/20 Administered Injection Umesh 06 Mary, M.D. Injection 12/24/19 Administered Injection Umesh 06 Mary, M.D. Injection 12/10/19 Administered Injection Umesh 06 Mary, M.D. Injection 11/26/19 Administered Injection Umesh 06 Mary, M.D. Injection 11/04/19 Administered Injection Umesh 06 Mary, M.D. Injection 10/21/19 Administered Injection Umesh 06 Mary, M.D. Injection 10/04/19 Administered Injection Umesh 06 Mary, M.D. Injection 09/20/20 Administered Injection Umesh 05 Mary, M.D. Injection 09/02/20 Administered Injection Umesh 05 Mary, M.D. Injection 08/19/20 Administered Injection Umesh 05 Mary, M.D. Injection 08/05/20 Administered Injection Umesh 05 Mary, M.D. Injection 07/22/20 Administered Injection Umesh 05 Mary, M.D. Injection 07/01/20 Administered Injection Umesh 05 Mary, M.D. Injection 06/17/20 Administered Injection Umesh 05 Mary, M.D. Injection 06/03/20 Administered Injection Umesh 05 Mary, M.D. Injection 05/20/20 Administered Injection Umesh 05 Mary, M.D. Injection 05/06/20 Administered Injection Umesh 05 Mary, M.D. Injection 04/19/20 Administered Injection Umesh 05 Mary, M.D. Injection 04/05/20 Administered Injection Umesh 05 Mary, M.D. Injection 03/22/20 Administered Injection Umesh 05 Mary, M.D. Injection 03/11/20 Administered Injection Umesh 05 Mary, M.D. Injection 02/26/20 Administered Injection Umesh 05 Mary, M.D. Injection 02/14/20 Administered Injection Umesh 05 Mary, M.D. Injection 01/26/20 Administered Injection Umesh 05 Mary, M.D. Injection 01/15/20 Administered Injection Umesh 05 Mary, M.D. Injection 01/01/20 Administered Injection Umesh 05 Mary, M.D. Injection 12/18/19 Administered Injection Umesh 05 Mary, M.D. Injection 12/04/19 Administered Injection Umesh 05 Mary, M.D. Injection 11/19/19 Administered Injection Umesh 05 Mary, M.D. Injection 11/05/19 Administered Injection Umesh 05 Mary, M.D. Injection 10/08/19 Administered Injection Umesh 05 Mary, M.D. Injection 09/26/19 Administered Injection Umesh 05 Mary, M.D. Injection 09/07/20 Administered Injection Umesh 04 Mary, M.D. Injection 08/27/20 Administered Injection Umesh 04 Mary, M.D. Injection 08/13/20 Administered Injection Umesh 04 Mary, M.D. Injection 07/30/20 Administered Injection Umesh 04 Mary, M.D. Injection 07/16/20 Administered Injection Umesh 04 Mary, M.D. Injection 07/02/20 Administered Injection Umesh 04 Mary, M.D. Injection 06/18/20 Administered Injection Umesh 04 Mary, M.D. Injection 06/04/20 Administered Injection Umesh 04 Mary, M.D. Injection 05/21/20 Administered Injection Umesh 04 Mary, M.D. Injection 05/07/20 Administered Injection Umesh 04 Mary, M.D. Injection 04/20/20 Administered Injection Umesh 04 Mary, M.D. Injection 04/06/20 Administered Injection Umesh 04 Mary, M.D. Injection 03/21/20 Administered Injection Umesh 04 Mary, M.D. Injection 03/07/20 Administered Injection Umesh 04 Mary, M.D. Injection 02/24/20 Administered Injection Umesh 04 Mary, M.D. Injection 01/30/20 Administered Injection Umesh 04 Mary, M.D. Injection 01/16/20 Administered Injection Umesh 04 Mary, M.D. Injection 01/09/20 Administered Injection Umesh 04 Mary, M.D. Injection 01/02/20 Administered Injection Umesh 04 Mary, M.D. Injection 12/16/19 Administered Injection Umesh 04 Mary, M.D. Injection 12/02/19 Administered Injection Muesh 04 Mary, M.D. Injection 11/18/19 Administered Injection Umesh 04 Mary, M.D. Injection 11/07/19 Administered Injection Umesh 04 Mary, M.D. Injection 10/24/19 Administered Injection Umesh 04 Mary, M.D. Injection 10/12/19 Administered Injection Umesh 04 Mary, M.D. Injection 09/28/19 Administered Injection Umesh 04 Mary, M.D. Injection 08/22/20 Administered Injection Umesh 03 Mary, M.D. Injection 08/10/20 Administered Injection Umesh 03 Mary, M.D. Injection 07/25/20 Administered Injection Umesh 03 Mary, M.D. Injection 07/13/20 Administered Injection Umesh 03 Mary, M.D. Injection 06/27/20 Administered Injection Umesh 03 Mary, M.D. Injection 06/13/20 Administered Injection Umesh 03 Mary, M.D. Injection 05/30/20 Administered Injection Umesh 03 Mary, M.D. Injection 05/16/20 Administered Injection Umesh 03 Mary, M.D. Injection 05/02/20 Administered Injection Umesh 03 Mary, M.D. Injection 04/20/20 Administered Injection Umesh 03 Mary M.Florencio. Immunizations CPT Code Status Date Vaccine Lot # [id number] Given 09/25/2015 Influenza Vaccine [id number] Given Unknown Influenza Vaccine Vital Signs Date Vital Result Comment 05/18/2018 Height 62 inches 5'2" Weight 183.00 lb Weight in kg's 83.009 Respiratory Rate 20 /min Heart Rate 59 /min O2 % BldC Oximetry 97 % BP Systolic 133 mmHg BP Diastolic 76 mmHg Asthma Control Test 21 BMI (Body Mass Index) 33.5 kg/m2 11/17/2017 Height 62 inches 5'2" Weight 177.00 lb Weight in kg's 80.287 Respiratory Rate 18 /min Heart Rate 60 /min O2 % BldC Oximetry 97 % BP Systolic 112 mmHg BP Diastolic 71 mmHg Asthma Control Test 24 BMI (Body Mass Index) 32.4 kg/m2 10/27/2017 Height 62 inches 5'2" Weight 177.00 lb Weight in kg's 80.287 Respiratory Rate 16 /min Heart Rate 67 /min O2 % BldC Oximetry 98 % BP Systolic 118 mmHg BP Diastolic 67 mmHg Asthma Control Test 23 BMI (Body Mass Index) 32.4 kg/m2 10/01/2016 Height 62 inches 5'2" Weight 180.50 lb Weight in kg's 81.875 Respiratory Rate 12 /min Heart Rate 60 /min O2 % BldC Oximetry 96 % BP Systolic 102 mmHg BP Diastolic 61 mmHg Asthma Control Test 23 BMI (Body Mass Index) 33.0 kg/m2 09/25/2015 Height 62 inches 5'2" Weight 179.00 lb Weight in kg's 81.194 Respiratory Rate 18 /min Heart Rate 63 /min O2 % BldC Oximetry 98 % BP Systolic 108 mmHg BP Diastolic 67 mmHg BMI (Body Mass Index) 32.7 kg/m2 03/27/2015 Height 62 inches 5'2" Weight 183.00 lb Weight in kg's 83.009 Respiratory Rate 16 /min Heart Rate 64 /min O2 % BldC Oximetry 98 % BP Systolic 104 mmHg BP Diastolic 64 mmHg Asthma Control Test 23 BMI (Body Mass Index) 33.5 kg/m2 12/19/2014 Height 62 inches 5'2" Weight 177.00 lb Weight in kg's 80.287 Respiratory Rate 18 /min Heart Rate 62 /min O2 % BldC Oximetry 97 % BP Systolic 118 mmHg BP Diastolic 72 mmHg Asthma Control Test 23 BMI (Body Mass Index) 32.4 kg/m2 10/10/2014 Height 62 inches 5'2" Weight 178.38 lb Weight in kg's 80.911 Respiratory Rate 18 /min Heart Rate 76 /min O2 % BldC Oximetry 96 % BP Systolic 126 mmHg BP Diastolic 78 mmHg BMI (Body Mass Index) 32.6 kg/m2 10/25/2013 Height 62 inches 5'2" Weight 175.00 lb pt verbalized weight Weight in kg's 79.380 Respiratory Rate 14 /min Heart Rate 77 /min O2 % BldC Oximetry 99 % BP Systolic 122 mmHg BP Diastolic 78 mmHg BMI (Body Mass Index) 32.0 kg/m2 09/08/2013 Height 62 inches 5'2" Weight 172.00 lb Weight in kg's 78.019 Respiratory Rate 14 /min Heart Rate 66 /min O2 % BldC Oximetry 98 % BP Systolic 102 mmHg BP Diastolic 84 mmHg BMI (Body Mass Index) 31.5 kg/m2 03/08/2013 Height 62 inches 5'2" Weight 180.00 lb Weight in kg's 81.648 Respiratory Rate 16 /min Heart Rate 69 /min O2 % BldC Oximetry 98 % BP Systolic 120 mmHg BP Diastolic 80 mmHg BMI (Body Mass Index) 32.9 kg/m2 Results Description No Information Procedures Date CPT Code Description Status 05/18/2018 59087 Pre PFT Completed 05/11/2018 67186 Extract 1-10 Completed 05/11/2018 27174 Injection Completed 04/27/2018 91790 Injection Completed 04/13/2018 59176 Injection Completed 03/30/2018 54107 Injection Completed 03/16/2018 90990 Injection Completed 03/09/2018 55319 Injection Completed 03/02/2018 57680 Injection Completed 02/18/2018 62336 Injection Completed 02/02/2018 57469 Injection Completed 01/21/2018 42988 Injection Completed 01/07/2018 62190 Injection Completed 01/07/2018 28398 Extract 1-10 Completed 12/24/2017 99617 Injection Completed 12/08/2017 99539 Injection Completed 11/24/2017 62235 Injection Completed 11/17/2017 79075 Pre PFT Completed 11/10/2017 96095 Injection Completed 10/27/2017 10222 Injection Completed 10/27/2017 39218 Pre PFT Completed 10/13/2017 10905 Injection Completed 09/29/2017 75717 Injection Completed 09/17/2017 69867 Injection Completed 09/17/2017 99902 Injection Completed 09/01/2017 93874 Injection Completed 08/20/2017 90741 Injection Completed 08/20/2017 53390 Extract 1-10 Completed 08/04/2017 89007 Injection Completed 07/21/2017 15123 Injection Completed 07/07/2017 58408 Injection Completed 06/23/2017 84982 Injection Completed 06/09/2017 82847 Injection Completed 05/28/2017 62083 Injection Completed 05/12/2017 36503 Injection Completed 04/28/2017 19287 Injection Completed 04/14/2017 12946 Injection Completed 04/02/2017 54483 Extract 1-10 Completed 04/02/2017 89629 Injection Completed 03/19/2017 52075 Injection Completed 03/05/2017 40644 Injection Completed 02/19/2017 24002 Injection Completed 02/19/2017 20500 Injection Completed 02/05/2017 47565 Injection Completed 01/20/2017 21459 Injection Completed 01/20/2017 45765 Injection Completed 12/30/2016 07935 Injection Completed 12/16/2016 49485 Injection Completed 12/06/2016 24063 Injection Completed 11/20/2016 18790 Injection Completed 10/28/2016 73853 Extract 1-10 Completed 10/28/2016 35542 Injection Completed 10/09/2016 48837 Injection Completed 10/01/2016 35837 Pre PFT Completed 09/25/2016 22973 Injection Completed 09/09/2016 20479 Injection Completed 08/23/2016 63225 Injection Completed 08/09/2016 91819 Injection Completed 07/26/2016 30875 Injection Completed 07/15/2016 21588 Injection Completed 07/01/2016 08506 Injection Completed 07/01/2016 20317 Injection Completed 06/17/2016 50760 Injection Completed 05/31/2016 42082 Extract 1-10 Completed 05/31/2016 86772 Injection Completed 05/13/2016 35085 Injection Completed 04/29/2016 17510 Injection Completed 04/15/2016 24272 Injection Completed 04/01/2016 58023 Injection Completed 03/20/2016 63240 Injection Completed 03/06/2016 70302 Injection Completed 02/21/2016 20763 Injection Completed 02/05/2016 19386 Injection Completed 01/17/2016 13009 Injection Completed 01/01/2016 53044 Extract 1-10 Completed 01/01/2016 81039 Injection Completed 12/18/2015 88311 Injection Completed 12/04/2015 68533 Injection Completed 11/20/2015 91094 Injection Completed 11/03/2015 14082 Injection Completed 10/16/2015 97897 Injection Completed 10/02/2015 50577 Injection Completed 09/25/2015 24469 Pre PFT Completed 09/18/2015 32113 Injection Completed 09/06/2015 26998 Injection Completed 08/23/2015 38607 Injection Completed 08/07/2015 89578 Extract 1-10 Completed 08/07/2015 77346 Injection Completed 07/26/2015 48010 Injection Completed 07/12/2015 96020 Injection Completed 06/28/2015 88848 Injection Completed 06/16/2015 00622 Injection Completed 06/02/2015 15359 Injection Completed 05/17/2015 93347 Injection Completed 05/03/2015 21978 Injection Completed 04/19/2015 75379 Injection Completed 04/05/2015 12829 Injection Completed 03/27/2015 65110 Pulmonary Function Test Completed 03/22/2015 56754 Extract 1-10 Completed 03/22/2015 99972 Injection Completed 03/08/2015 25083 Injection Completed 02/15/2015 70451 Injection Completed 02/01/2015 92645 Injection Completed 01/16/2015 53679 Injection Completed 01/02/2015 93411 Injection Completed 12/19/2014 77943 Injection Completed 12/07/2014 42039 Injection Completed 11/21/2014 03988 Injection Completed 11/07/2014 88762 Injection Completed 10/24/2014 67896 Extract 1-10 Completed 10/24/2014 27260 Injection Completed 10/10/2014 85920 Injection Completed 10/10/2014 18856 Pulmonary Function Test Completed 09/26/2014 87799 Injection Completed 09/12/2014 89464 Injection Completed 08/29/2014 57333 Injection Completed 08/10/2014 59375 Injection Completed 07/27/2014 00060 Injection Completed 07/13/2014 25125 Injection Completed 06/29/2014 14272 Injection Completed 06/13/2014 00129 Injection Completed 06/01/2014 70803 Injection Completed 06/01/2014 80855 Extract 1-10 Completed 05/18/2014 54252 Injection Completed 05/02/2014 36919 Injection Completed 04/11/2014 64599 Injection Completed 03/28/2014 46087 Injection Completed 03/14/2014 30339 Injection Completed 03/14/2014 60354 Injection Completed 02/28/2014 35363 Injection Completed 02/07/2014 77988 Injection Completed 01/24/2014 52128 Injection Completed 01/24/2014 19376 Injection Completed 01/10/2014 02235 Injection Completed 12/27/2013 01203 Injection Completed 12/27/2013 19975 Extract 1-10 Completed 12/13/2013 39030 Injection Completed 11/29/2013 08541 Injection Completed 11/15/2013 29686 Injection Completed 11/01/2013 36738 Injection Completed 10/18/2013 61310 Injection Completed 10/04/2013 60972 Injection Completed 09/20/2013 82574 Injection Completed 09/08/2013 48491 Injection Completed 09/08/2013 73131 Oxygen Level - Pulse Oximiter Completed 08/25/2013 19907 Injection Completed 08/11/2013 88542 Extract 1-10 Completed 08/11/2013 74753 Injection Completed 07/28/2013 58872 Injection Completed 07/14/2013 11756 Injection Completed 06/30/2013 45001 Injection Completed 06/16/2013 98420 Injection Completed 05/31/2013 22519 Injection Completed 05/17/2013 17461 Injection Completed 05/05/2013 57532 Injection Completed 04/19/2013 29540 Injection Completed 03/29/2013 46815 Injection Completed 03/15/2013 83650 Extract 1-10 Completed 03/15/2013 61208 Injection Completed 03/08/2013 25204 Oxygen Level - Pulse Oximiter Completed 03/08/2013 37418 Pulmonary Function Test Completed 03/01/2013 40450 Injection Completed 02/17/2013 06655 Injection Completed 02/03/2013 44975 Injection Completed 01/15/2013 29916 Injection Completed 12/30/2012 60636 Injection Completed 12/16/2012 14364 Injection Completed 12/02/2012 55137 Injection Completed 11/18/2012 52441 Injection Completed 11/02/2012 65349 Injection Completed 10/21/2012 17029 Extract 1-10 Completed 10/21/2012 03841 Injection Completed 10/07/2012 45449 Injection Completed 09/23/2012 23263 Injection Completed 09/07/2012 35799 Injection Completed 08/24/2012 13599 Injection Completed 08/03/2012 43395 Injection Completed 07/20/2012 20658 Injection Completed 07/06/2012 54273 Injection Completed 06/24/2012 57960 Injection Completed 06/10/2012 77297 Injection Completed 05/27/2012 69725 Injection Completed 05/13/2012 47929 Injection Completed 05/13/2012 10538 Injection Completed 04/29/2012 74574 Injection Completed 04/13/2012 37542 Injection Completed 03/30/2012 26207 Injection Completed 03/16/2012 44703 Injection Completed 03/02/2012 52560 Injection Completed 02/19/2012 31699 Injection Completed 02/05/2012 01837 Injection Completed 01/22/2012 00666 Injection Completed 01/14/2012 90753 Extract 1-10 Completed 01/08/2012 46937 Injection Completed 12/25/2011 34097 Injection Completed 12/11/2011 14024 Injection Completed 11/27/2011 09748 Injection Completed 11/11/2011 62040 Injection Completed 10/28/2011 42754 Injection Completed 10/16/2011 85583 Injection Completed 10/02/2011 76943 Injection Completed 09/18/2011 17010 Injection Completed 09/04/2011 66752 Injection Completed 08/28/2011 32596 Oxygen Level - Pulse Oximiter Completed 08/28/2011 28175 Pulmonary Function Test Completed 08/23/2011 25772 Extract 1-10 Completed 08/21/2011 68179 Injection Completed 08/07/2011 72018 Injection Completed 07/24/2011 75559 Injection Completed 07/10/2011 99448 Injection Completed 06/24/2011 12768 Injection Completed 06/10/2011 21188 Injection Completed 05/20/2011 06782 Injection Completed 05/06/2011 95907 Injection Completed 04/22/2011 90698 Injection Completed 04/08/2011 40695 Injection Completed 04/03/2011 87889 Extract 1-10 Completed 03/27/2011 40670 Injection Completed 03/11/2011 36154 Injection Completed 02/25/2011 53765 Injection Completed 02/11/2011 82438 Injection Completed 01/28/2011 09708 Injection Completed 01/14/2011 94445 Injection Completed 12/31/2010 05455 Injection Completed 12/19/2010 39197 Injection Completed 12/03/2010 44434 Injection Completed 11/19/2010 82159 Injection Completed 11/09/2010 45619 Extract 1-10 Completed 11/05/2010 17544 Injection Completed 10/22/2010 67229 Injection Completed 10/08/2010 42451 Injection Completed 09/24/2010 99328 Injection Completed 08/27/2010 98829 Injection Completed 07/30/2010 08515 Injection Completed 07/16/2010 72707 Injection Completed 07/02/2010 04805 Injection Completed 06/18/2010 25538 Injection Completed 06/04/2010 93236 Injection Completed 05/17/2010 14404 Extract 1-10 Completed 05/16/2010 33235 Injection Completed 04/23/2010 30986 Injection Completed 04/11/2010 95027 Injection Completed 03/28/2010 55327 Injection Completed 03/14/2010 25293 Injection Completed 02/28/2010 66849 Injection Completed 02/16/2010 82089 Injection Completed 01/29/2010 46675 Injection Completed 01/15/2010 89618 Injection Completed 01/01/2010 05457 Injection Completed 12/11/2009 45151 Extract 1-10 Completed 12/11/2009 46695 Injection Completed 11/27/2009 07639 Injection Completed 11/13/2009 11198 Injection Completed 10/23/2009 98591 Injection Completed 10/09/2009 51132 Injection Completed 09/27/2009 49970 Injection Completed 09/11/2009 70722 Injection Completed 08/28/2009 93542 Injection Completed 08/14/2009 69623 Injection Completed 07/31/2009 57034 Injection Completed 07/26/2009 62236 Extract 1-10 Completed 07/17/2009 98374 Injection Completed 07/03/2009 29071 Injection Completed 06/19/2009 09960 Injection Completed 06/05/2009 50361 Injection Completed 05/15/2009 17075 Injection Completed 05/03/2009 34753 Injection Completed 04/17/2009 11732 Injection Completed 04/03/2009 42768 Injection Completed 03/17/2009 96652 Injection Completed 03/03/2009 04040 Injection Completed 02/10/2009 26723 Extract 1-10 Completed 02/08/2009 90070 Injection Completed 01/23/2009 45954 Injection Completed 01/09/2009 82331 Injection Completed 12/26/2008 41037 Injection Completed 12/12/2008 26770 Injection Completed 11/28/2008 06551 Injection Completed 11/07/2008 18155 Injection Completed 10/24/2008 18194 Injection Completed 10/10/2008 21948 Injection Completed 09/26/2008 95265 Injection Completed 09/21/2008 82829 Extract 1-10 Completed 09/12/2008 02147 Injection Completed 08/08/2008 72545 Injection Completed 07/25/2008 84267 Injection Completed 07/11/2008 11599 Injection Completed 06/27/2008 71304 Injection Completed 06/13/2008 02117 Injection Completed 05/30/2008 92748 Injection Completed 05/16/2008 61413 Injection Completed 04/29/2008 09821 Injection Completed 04/18/2008 84642 Injection Completed 04/13/2008 80302 Extract 1-10 Completed 04/04/2008 16591 Injection Completed 03/18/2008 69578 Injection Completed 03/04/2008 17249 Injection Completed 02/17/2008 71037 Injection Completed 02/12/2008 27760 Pulmonary Function Test Completed 02/01/2008 84520 Injection Completed 01/18/2008 29845 Injection Completed 01/04/2008 15352 Injection Completed 12/21/2007 27264 Injection Completed 12/04/2007 31207 Injection Completed 11/23/2007 50098 Injection Completed 11/11/2007 61459 Extract 1-10 Completed 11/09/2007 27172 Injection Completed 10/26/2007 99335 Injection Completed 10/12/2007 90981 Injection Completed 09/28/2007 62955 Injection Completed 09/18/2007 59356 Injection Completed 08/31/2007 19787 Injection Completed 08/17/2007 55778 Injection Completed 07/27/2007 03604 Injection Completed 07/13/2007 88274 Injection Completed 06/29/2007 23953 Injection Completed 06/24/2007 54287 Extract 1-10 Completed 06/15/2007 44367 Injection Completed 06/01/2007 81343 Injection Completed 05/11/2007 26591 Injection Completed 04/27/2007 22201 Injection Completed 04/15/2007 25906 Injection Completed 04/01/2007 73389 Injection Completed 03/18/2007 73604 Injection Completed 03/04/2007 13992 Injection Completed 02/18/2007 84047 Injection Completed 02/02/2007 04244 Injection Completed 01/21/2007 52244 Extract 1-10 Completed 01/19/2007 21229 Injection Completed 01/07/2007 20769 Injection Completed 12/22/2006 91870 Injection Completed 12/10/2006 91647 Injection Completed 11/24/2006 14047 Injection Completed 11/10/2006 85865 Injection Completed 10/27/2006 43653 Injection Completed 10/13/2006 69026 Injection Completed 10/01/2006 18086 Injection Completed 09/17/2006 94817 Injection Completed 09/12/2006 18698 Extract 1-10 Completed 09/01/2006 92023 Injection Completed 08/18/2006 06407 Injection Completed 07/28/2006 19306 Injection Completed 07/14/2006 81247 Injection Completed 06/30/2006 88705 Injection Completed 06/09/2006 98948 Injection Completed 05/28/2006 89652 Injection Completed 05/12/2006 94295 Injection Completed 04/30/2006 62607 Injection Completed 04/23/2006 89879 Pulmonary Function Test Completed 04/16/2006 47144 Injection Completed 04/02/2006 10358 Injection Completed 03/19/2006 82247 Injection Completed 03/07/2006 26561 Injection Completed 02/19/2006 18689 Injection Completed 02/03/2006 89604 Injection Completed 01/20/2006 13276 Injection Completed 01/06/2006 65439 Injection Completed 12/23/2005 45062 Injection Completed 12/09/2005 35862 Injection Completed 11/25/2005 90807 Injection Completed 11/15/2005 32202 Extract 1-10 Completed 11/04/2005 49188 Injection Completed 10/21/2005 61448 Injection Completed 10/04/2005 65967 Injection Completed 09/20/2005 84696 Injection Completed 09/02/2005 15292 Injection Completed 08/19/2005 97806 Injection Completed 08/05/2005 41604 Injection Completed 07/22/2005 28270 Injection Completed 07/01/2005 06605 Injection Completed 06/17/2005 99845 Injection Completed 06/12/2005 26831 Extract 1-10 Completed 06/03/2005 76911 Injection Completed 05/20/2005 38651 Injection Completed 05/06/2005 56953 Injection Completed 04/19/2005 58493 Injection Completed 04/05/2005 51368 Injection Completed 03/22/2005 68141 Injection Completed 03/11/2005 76288 Injection Completed 02/25/2005 20212 Injection Completed 02/13/2005 95501 Injection Completed 01/25/2005 94387 Injection Completed 01/23/2005 51742 Extract 1-10 Completed 01/14/2005 85199 Injection Completed 12/31/2004 11094 Injection Completed 12/17/2004 86467 Injection Completed 12/03/2004 50354 Injection Completed 11/19/2004 14144 Injection Completed 11/05/2004 06420 Injection Completed 10/08/2004 19308 Injection Completed 09/26/2004 73186 Injection Completed 09/07/2004 45068 Injection Completed 08/27/2004 29576 Injection Completed 08/13/2004 72430 Injection Completed 07/30/2004 00398 Injection Completed 07/16/2004 18755 Injection Completed 07/02/2004 47675 Injection Completed 06/18/2004 18771 Injection Completed 06/04/2004 13023 Injection Completed 05/21/2004 46900 Injection Completed 05/09/2004 87454 Pulmonary Function Test Completed 05/07/2004 35179 Injection Completed 04/20/2004 53671 Injection Completed 04/16/2004 29919 Extract 1-10 Completed 04/06/2004 98959 Injection Completed 03/21/2004 53895 Injection Completed 03/07/2004 54273 Injection Completed 02/24/2004 30607 Injection Completed 01/30/2004 54442 Injection Completed 01/16/2004 57455 Injection Completed 01/09/2004 39419 Injection Completed 01/02/2004 22857 Injection Completed 12/16/2003 08420 Injection Completed 12/02/2003 59755 Injection Completed 11/28/2003 75361 Extract 1-10 Completed 11/18/2003 53250 Injection Completed 11/07/2003 42913 Injection Completed 10/24/2003 04717 Injection Completed 10/12/2003 11287 Injection Completed 09/28/2003 72481 Injection Completed 08/22/2003 00128 Injection Completed 08/10/2003 69285 Injection Completed 07/25/2003 65412 Injection Completed 07/13/2003 49153 Injection Completed 06/27/2003 14969 Injection Completed 06/22/2003 60990 Extract 1-10 Completed 06/13/2003 14545 Injection Completed 05/30/2003 21975 Injection Completed 05/16/2003 88219 Injection Completed 05/02/2003 27532 Injection Completed 04/20/2003 79627 Injection Completed Encounters Type Date Location Provider CPT E/M Dx Office Visit 05/18/2018 4:00p ANGIE Montez 06199 J30.1 J30.81 J30.89 J30.2 Office Visit 11/17/2017 4:00p ANGIE Montez 88097 J45.30 J30.89 J30.81 J30.2 J30.1 Office Visit 10/27/2017 3:40p ANGIE Montez 86083 J45.30 J30.1 J30.2 J30.81 J30.89 Office Visit 10/01/2016 3:20p Yamilet Mackey M.D. 04254 J30.1 Z68.33 J45.30 Office Visit 09/25/2015 4:20p Yamilet Mackey M.D. 42678 Z68.32 J30.1 J45.30 Office Visit 03/27/2015 4:20p Yamilet Mackey M.D. 05013 786.2 477.8 V85.33 Office Visit 12/19/2014 4:20p Yamilet Mackey M.D. 37245 477.8 786.2 Office Visit 10/10/2014 11:40a Yamilet Mackey M.D. 94998 477.8 786.2 Office Visit 10/25/2013 4:00p [place] ANGIE Briscoe 03030 477.8 493.00 477.0 Office Visit 09/08/2013 4:20p ANGIE Null 38978 477.8 477.0 493.00 Office Visit 01/15/2013 4:00p [place] EMILY Fung 96685 477.8 477.0 493.00 Office Visit 11/21/2008 4:15p [place] [address] 477.0 477.8 Plan of Care Future Appointment(s):06/18/2018 4:00 pm - ANGIE An at Wtkupe0801/2018 3:30 pm - Allergy Injection at Jsihsv1805/18/2018 - JULI An CJ30.1 Allergic rhinitis due to uingnyF39.81 Allergic rhinitis due to animal ( cat) (dog) hair and sjetozM72.89 Other allergic eixoinmuN41.2 Other seasonal allergic rhinitisFollow up:1 month with pre PFTRecommendations:Continue all medications as prescribed.Refrain from wearing perfumes/scented colognes while visitingour office. Continue the Spiriva 2 puffs daily Stop the Asmanex 2 puffs daily Start the Qvar 80 mcg redihaler 2 puffs twice a day Use the aerochamber with the inhaler Continue the montelukast 1 daily Continue the Clarinex 1 daily Continue the Azelestine eye drops 1 each eye daily Continue the Proair 2 puffs as needed for cough, shortness of breath, wheezing and chest congestion.Take the Proairbefore climbing the stairs.
--- OUTSIDE RECORDS SUMMARY | 2018-05-21 16:18 | XMS REPORT ---
:1960 External Reference #:[id number] Author Organization [facility] Address [address] [place] [address] Phone [phone] Care Team Providers Name Role Phone Abdias Paul M.D. Care Team Information Telegraph Office Manager Unavailable Abdias Paul M.D. Primary Care Physician Unavailable Payers Type Date Identification Numbers Payment Provider Subscriber Commercial Effective: Policy Number: [id number] [facility] oRsangela Odom 2014 Expires: 2018 PayID: [id number] [address] [place] [address] [facility] Effective: Policy Number: [facility] Rosangela Odom 2018 [id number] PayID: [id number] [address] [place] [address] [employer] Part B Policy Number: [id number] [employer] / Jeff Odom PayID: [id number] [address] (Formerly ) [place] [address] [facility] Effective: Policy Number: Formerly [facility] Jeff Odom 2013 [id number] [facility] Expires: 2014 Group Number: [id number] [address] [place] [address] Problems Date Description Provider Status Onset: 09/25/2015 [...] Lives With Spouse 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 Home Environment Has central air Home Environment [...] Work is smoke-free 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[employer] ETOH Use Denies alcohol use Smoking Patient [...] 60 2015 a day Uldrich, Metered Doses PROFESSOR OF HISTORICAL THEOLOGY-C Montelukast 09/08/ Active Tablets 10mg 90tabs take 1 Lyudmila Sodium 2013 tablet every Uldrich, evening PROFESSOR OF HISTORICAL THEOLOGY-C Proair HFA 01/15/ Active Aerosol 108(90Base 1units two Tesha 2012 ) mcg/Act inhalations Farley-Jam every 4 kolton, hours as PROFESSOR OF HISTORICAL THEOLOGY-C needed for cough, wheezing or chest tightness [...] Lyudmila 0000 every day 90 , supply PROFESSOR OF HISTORICAL THEOLOGY-C Calcium 600 + / Active Tablets 600-200mg- [...] Maria Teresa Hernandez.DLori Injection 03/14/20 Administered Injection Muesh 10 Omar Hernandez Injection 02/29/20 Administered Injection [...] 09 Mary, M.D. Injection 04/03/20 Administered Injection Uemsh 09 Mary, M.D. Injection 03/17/20 Administered Injection [...] 08 Mary, M.D. Injection 10/26/19 Administered Injection Umesh 08 Mary, M.D. Injection 10/12/19 Administered Injection [...] M.D. Injection 05/12/20 Administered Injection Umesh 06 Mary, M.D. Injection 04/30/20 Administered Injection Umesh 06 [...] 04 Mary, M.D. Injection 12/02/19 Administered Injection Umesh 04 Mary, M.D. Injection 11/18/19 Administered Injection [...] CPT Code Status Date Vaccine Lot # [id number] Given 09/25/2015 Influenza Vaccine 93032 Given Unknown Influenza Vaccine Vital Signs Date [...] Procedures Date CPT Code Description Status 05/18/2018 60550 Pre PFT Completed 05/11/2018 69921 Extract 1-10 Completed 05/11/2018 46663 Injection Completed 04/27/2018 84887 Injection Completed 04/13/2018 85157 Injection Completed 03/30/2018 78012 Injection Completed 03/16/2018 52326 Injection Completed 03/09/2018 80138 Injection Completed 03/02/2018 84824 Injection Completed 02/18/2018 60810 Injection Completed 02/02/2018 73844 Injection Completed 01/21/2018 46749 Injection Completed 01/07/2018 91696 Injection Completed 01/07/2018 29444 Extract 1-10 Completed 12/24/2017 03118 Injection Completed 12/08/2017 53900 Injection Completed 11/24/2017 45156 Injection Completed 11/17/2017 30905 Pre PFT Completed 11/10/2017 59884 Injection Completed 10/27/2017 19275 Injection Completed 10/27/2017 30001 Pre PFT Completed 10/13/2017 30557 Injection Completed 09/29/2017 85488 Injection Completed 09/17/2017 11576 Injection Completed 09/17/2017 76179 Injection Completed 09/01/2017 79231 Injection Completed 08/20/2017 24493 Injection Completed 08/20/2017 44595 Extract 1-10 Completed 08/04/2017 77232 Injection Completed 07/21/2017 44154 Injection Completed 07/07/2017 38195 Injection Completed 06/23/2017 31524 Injection Completed 06/09/2017 17117 Injection Completed 05/28/2017 99590 Injection Completed 05/12/2017 68457 Injection Completed 04/28/2017 64278 Injection Completed 04/14/2017 14957 Injection Completed 04/02/2017 11826 Extract 1-10 Completed 04/02/2017 71738 Injection Completed 03/19/2017 77922 Injection Completed 03/05/2017 19125 Injection Completed 02/19/2017 71606 Injection Completed 02/19/2017 38865 Injection Completed 02/05/2017 82309 Injection Completed 01/20/2017 26286 Injection Completed 01/20/2017 45742 Injection Completed 12/30/2016 60376 Injection Completed 12/16/2016 13509 Injection Completed 12/06/2016 88932 Injection Completed 11/20/2016 44723 Injection Completed 10/28/2016 57411 Extract 1-10 Completed 10/28/2016 40968 Injection Completed 10/09/2016 06613 Injection Completed 10/01/2016 15070 Pre PFT Completed 09/25/2016 95257 Injection Completed 09/09/2016 79886 Injection Completed 08/23/2016 03388 Injection Completed 08/09/2016 91331 Injection Completed 07/26/2016 19916 Injection Completed 07/15/2016 08943 Injection Completed 07/01/2016 21994 Injection Completed 07/01/2016 03966 Injection Completed 06/17/2016 90134 Injection Completed 05/31/2016 33330 Extract 1-10 Completed 05/31/2016 02157 Injection Completed 05/13/2016 42958 Injection Completed 04/29/2016 33493 Injection Completed 04/15/2016 02977 Injection Completed 04/01/2016 84910 Injection Completed 03/20/2016 46581 Injection Completed 03/06/2016 02355 Injection Completed 02/21/2016 02901 Injection Completed 02/05/2016 84017 Injection Completed 01/17/2016 92043 Injection Completed 01/01/2016 05468 Extract 1-10 Completed 01/01/2016 76409 Injection Completed 12/18/2015 44862 Injection Completed 12/04/2015 56797 Injection Completed 11/20/2015 65382 Injection Completed 11/03/2015 47076 Injection Completed 10/16/2015 55661 Injection Completed 10/02/2015 39371 Injection Completed 09/25/2015 45965 Pre PFT Completed 09/18/2015 91172 Injection Completed 09/06/2015 00578 Injection Completed 08/23/2015 22130 Injection Completed 08/07/2015 55943 Extract 1-10 Completed 08/07/2015 35001 Injection Completed 07/26/2015 93994 Injection Completed 07/12/2015 91675 Injection Completed 06/28/2015 01671 Injection Completed 06/16/2015 22223 Injection Completed 06/02/2015 70041 Injection Completed 05/17/2015 04877 Injection Completed 05/03/2015 06814 Injection Completed 04/19/2015 98550 Injection Completed 04/05/2015 77974 Injection Completed 03/27/2015 09789 Pulmonary Function Test Completed 03/22/2015 26831 Extract 1-10 Completed 03/22/2015 90662 Injection Completed 03/08/2015 28359 Injection Completed 02/15/2015 86383 Injection Completed 02/01/2015 34807 Injection Completed 01/16/2015 98886 Injection Completed 01/02/2015 21241 Injection Completed 12/19/2014 02106 Injection Completed 12/07/2014 47119 Injection Completed 11/21/2014 81663 Injection Completed 11/07/2014 87431 Injection Completed 10/24/2014 39034 Extract 1-10 Completed 10/24/2014 28425 Injection Completed 10/10/2014 88615 Injection Completed 10/10/2014 76249 Pulmonary Function Test Completed 09/26/2014 76002 Injection Completed 09/12/2014 06350 Injection Completed 08/29/2014 11076 Injection Completed 08/10/2014 68203 Injection Completed 07/27/2014 43816 Injection Completed 07/13/2014 67949 Injection Completed 06/29/2014 98846 Injection Completed 06/13/2014 15653 Injection Completed 06/01/2014 22606 Injection Completed 06/01/2014 58595 Extract 1-10 Completed 05/18/2014 59054 Injection Completed 05/02/2014 46854 Injection Completed 04/11/2014 56764 Injection Completed 03/28/2014 30577 Injection Completed 03/14/2014 43593 Injection Completed 03/14/2014 50767 Injection Completed 02/28/2014 13984 Injection Completed 02/07/2014 40255 Injection Completed 01/24/2014 14361 Injection Completed 01/24/2014 28966 Injection Completed 01/10/2014 38631 Injection Completed 12/27/2013 80422 Injection Completed 12/27/2013 13356 Extract 1-10 Completed 12/13/2013 15760 Injection Completed 11/29/2013 38246 Injection Completed 11/15/2013 93451 Injection Completed 11/01/2013 78439 Injection Completed 10/18/2013 60454 Injection Completed 10/04/2013 82074 Injection Completed 09/20/2013 33874 Injection Completed 09/08/2013 27835 Injection Completed 09/08/2013 71337 Oxygen Level - Pulse Oximiter Completed 08/25/2013 64615 Injection Completed 08/11/2013 72288 Extract 1-10 Completed 08/11/2013 66156 Injection Completed 07/28/2013 07852 Injection Completed 07/14/2013 04206 Injection Completed 06/30/2013 45364 Injection Completed 06/16/2013 01241 Injection Completed 05/31/2013 07537 Injection Completed 05/17/2013 00196 Injection Completed 05/05/2013 47800 Injection Completed 04/19/2013 44323 Injection Completed 03/29/2013 45673 Injection Completed 03/15/2013 85592 Extract 1-10 Completed 03/15/2013 84840 Injection Completed 03/08/2013 39614 Oxygen Level - Pulse Oximiter Completed 03/08/2013 40937 Pulmonary Function Test Completed 03/01/2013 22613 Injection Completed 02/17/2013 29067 Injection Completed 02/03/2013 20543 Injection Completed 01/15/2013 59547 Injection Completed 12/30/2012 61845 Injection Completed 12/16/2012 84779 Injection Completed 12/02/2012 33471 Injection Completed 11/18/2012 42745 Injection Completed 11/02/2012 67196 Injection Completed 10/21/2012 13511 Extract 1-10 Completed 10/21/2012 04030 Injection Completed 10/07/2012 00856 Injection Completed 09/23/2012 97579 Injection Completed 09/07/2012 31079 Injection Completed 08/24/2012 80043 Injection Completed 08/03/2012 18384 Injection Completed 07/20/2012 00414 Injection Completed 07/06/2012 80599 Injection Completed 06/24/2012 89594 Injection Completed 06/10/2012 47722 Injection Completed 05/27/2012 38181 Injection Completed 05/13/2012 15328 Injection Completed 05/13/2012 53970 Injection Completed 04/29/2012 20581 Injection Completed 04/13/2012 52106 Injection Completed 03/30/2012 04074 Injection Completed 03/16/2012 39034 Injection Completed 03/02/2012 06783 Injection Completed 02/19/2012 09447 Injection Completed 02/05/2012 58668 Injection Completed 01/22/2012 39926 Injection Completed 01/14/2012 18002 Extract 1-10 Completed 01/08/2012 60273 Injection Completed 12/25/2011 44178 Injection Completed 12/11/2011 33335 Injection Completed 11/27/2011 67605 Injection Completed 11/11/2011 72847 Injection Completed 10/28/2011 09561 Injection Completed 10/16/2011 67163 Injection Completed 10/02/2011 26051 Injection Completed 09/18/2011 32392 Injection Completed 09/04/2011 66365 Injection Completed 08/28/2011 20776 Oxygen Level - Pulse Oximiter Completed 08/28/2011 71717 Pulmonary Function Test Completed 08/23/2011 89503 Extract 1-10 Completed 08/21/2011 96040 Injection Completed 08/07/2011 63380 Injection Completed 07/24/2011 37312 Injection Completed 07/10/2011 76464 Injection Completed 06/24/2011 40465 Injection Completed 06/10/2011 18827 Injection Completed 05/20/2011 85799 Injection Completed 05/06/2011 03814 Injection Completed 04/22/2011 99730 Injection Completed 04/08/2011 69403 Injection Completed 04/03/2011 51195 Extract 1-10 Completed 03/27/2011 83793 Injection Completed 03/11/2011 53327 Injection Completed 02/25/2011 63020 Injection Completed 02/11/2011 61005 Injection Completed 01/28/2011 24190 Injection Completed 01/14/2011 58262 Injection Completed 12/31/2010 20804 Injection Completed 12/19/2010 31888 Injection Completed 12/03/2010 62641 Injection Completed 11/19/2010 35566 Injection Completed 11/09/2010 04676 Extract 1-10 Completed 11/05/2010 04344 Injection Completed 10/22/2010 06421 Injection Completed 10/08/2010 10549 Injection Completed 09/24/2010 26464 Injection Completed 08/27/2010 06118 Injection Completed 07/30/2010 50457 Injection Completed 07/16/2010 25444 Injection Completed 07/02/2010 67765 Injection Completed 06/18/2010 33905 Injection Completed 06/04/2010 33742 Injection Completed 05/17/2010 09961 Extract 1-10 Completed 05/16/2010 28084 Injection Completed 04/23/2010 57356 Injection Completed 04/11/2010 74119 Injection Completed 03/28/2010 50125 Injection Completed 03/14/2010 73170 Injection Completed 02/28/2010 70669 Injection Completed 02/16/2010 50784 Injection Completed 01/29/2010 68902 Injection Completed 01/15/2010 39039 Injection Completed 01/01/2010 03078 Injection Completed 12/11/2009 57135 Extract 1-10 Completed 12/11/2009 04322 Injection Completed 11/27/2009 18739 Injection Completed 11/13/2009 18160 Injection Completed 10/23/2009 15635 Injection Completed 10/09/2009 13251 Injection Completed 09/27/2009 32206 Injection Completed 09/11/2009 51642 Injection Completed 08/28/2009 54783 Injection Completed 08/14/2009 57556 Injection Completed 07/31/2009 01716 Injection Completed 07/26/2009 18316 Extract 1-10 Completed 07/17/2009 78209 Injection Completed 07/03/2009 08523 Injection Completed 06/19/2009 50780 Injection Completed 06/05/2009 16419 Injection Completed 05/15/2009 71256 Injection Completed 05/03/2009 11067 Injection Completed 04/17/2009 76281 Injection Completed 04/03/2009 03735 Injection Completed 03/17/2009 09523 Injection Completed 03/03/2009 76142 Injection Completed 02/10/2009 52030 Extract 1-10 Completed 02/08/2009 71039 Injection Completed 01/23/2009 46530 Injection Completed 01/09/2009 16952 Injection Completed 12/26/2008 19032 Injection Completed 12/12/2008 46753 Injection Completed 11/28/2008 41944 Injection Completed 11/07/2008 83906 Injection Completed 10/24/2008 70999 Injection Completed 10/10/2008 25228 Injection Completed 09/26/2008 41783 Injection Completed 09/21/2008 99858 Extract 1-10 Completed 09/12/2008 62860 Injection Completed 08/08/2008 26470 Injection Completed 07/25/2008 58368 Injection Completed 07/11/2008 79139 Injection Completed 06/27/2008 37510 Injection Completed 06/13/2008 13022 Injection Completed 05/30/2008 42023 Injection Completed 05/16/2008 66744 Injection Completed 04/29/2008 78913 Injection Completed 04/18/2008 21364 Injection Completed 04/13/2008 98892 Extract 1-10 Completed 04/04/2008 00335 Injection Completed 03/18/2008 05912 Injection Completed 03/04/2008 27159 Injection Completed 02/17/2008 86643 Injection Completed 02/12/2008 43743 Pulmonary Function Test Completed 02/01/2008 74550 Injection Completed 01/18/2008 06297 Injection Completed 01/04/2008 16381 Injection Completed 12/21/2007 68079 Injection Completed 12/04/2007 28953 Injection Completed 11/23/2007 10640 Injection Completed 11/11/2007 17708 Extract 1-10 Completed 11/09/2007 59250 Injection Completed 10/26/2007 54054 Injection Completed 10/12/2007 92972 Injection Completed 09/28/2007 24421 Injection Completed 09/18/2007 05076 Injection Completed 08/31/2007 01124 Injection Completed 08/17/2007 12354 Injection Completed 07/27/2007 84324 Injection Completed 07/13/2007 56178 Injection Completed 06/29/2007 53372 Injection Completed 06/24/2007 71073 Extract 1-10 Completed 06/15/2007 90176 Injection Completed 06/01/2007 86563 Injection Completed 05/11/2007 72339 Injection Completed 04/27/2007 82460 Injection Completed 04/15/2007 09948 Injection Completed 04/01/2007 61721 Injection Completed 03/18/2007 04232 Injection Completed 03/04/2007 34246 Injection Completed 02/18/2007 69231 Injection Completed 02/02/2007 92954 Injection Completed 01/21/2007 87572 Extract 1-10 Completed 01/19/2007 99735 Injection Completed 01/07/2007 49956 Injection Completed 12/22/2006 31000 Injection Completed 12/10/2006 53843 Injection Completed 11/24/2006 79482 Injection Completed 11/10/2006 10540 Injection Completed 10/27/2006 49249 Injection Completed 10/13/2006 35093 Injection Completed 10/01/2006 06315 Injection Completed 09/17/2006 18279 Injection Completed 09/12/2006 58120 Extract 1-10 Completed 09/01/2006 25539 Injection Completed 08/18/2006 05290 Injection Completed 07/28/2006 45490 Injection Completed 07/14/2006 47746 Injection Completed 06/30/2006 15504 Injection Completed 06/09/2006 28787 Injection Completed 05/28/2006 96789 Injection Completed 05/12/2006 18136 Injection Completed 04/30/2006 16570 Injection Completed 04/23/2006 45475 Pulmonary Function Test Completed 04/16/2006 08945 Injection Completed 04/02/2006 83090 Injection Completed 03/19/2006 02771 Injection Completed 03/07/2006 69304 Injection Completed 02/19/2006 43018 Injection Completed 02/03/2006 33812 Injection Completed 01/20/2006 80423 Injection Completed 01/06/2006 71649 Injection Completed 12/23/2005 07763 Injection Completed 12/09/2005 03420 Injection Completed 11/25/2005 46378 Injection Completed 11/15/2005 88147 Extract 1-10 Completed 11/04/2005 69964 Injection Completed 10/21/2005 91557 Injection Completed 10/04/2005 83956 Injection Completed 09/20/2005 95917 Injection Completed 09/02/2005 72536 Injection Completed 08/19/2005 53001 Injection Completed 08/05/2005 88598 Injection Completed 07/22/2005 18614 Injection Completed 07/01/2005 95311 Injection Completed 06/17/2005 39877 Injection Completed 06/12/2005 05973 Extract 1-10 Completed 06/03/2005 43205 Injection Completed 05/20/2005 79927 Injection Completed 05/06/2005 34835 Injection Completed 04/19/2005 27315 Injection Completed 04/05/2005 17715 Injection Completed 03/22/2005 45871 Injection Completed 03/11/2005 46062 Injection Completed 02/25/2005 89047 Injection Completed 02/13/2005 25271 Injection Completed 01/25/2005 21513 Injection Completed 01/23/2005 78891 Extract 1-10 Completed 01/14/2005 65948 Injection Completed 12/31/2004 25967 Injection Completed 12/17/2004 51210 Injection Completed 12/03/2004 74091 Injection Completed 11/19/2004 17010 Injection Completed 11/05/2004 28321 Injection Completed 10/08/2004 66347 Injection Completed 09/26/2004 05498 Injection Completed 09/07/2004 76884 Injection Completed 08/27/2004 76597 Injection Completed 08/13/2004 92742 Injection Completed 07/30/2004 23306 Injection Completed 07/16/2004 40969 Injection Completed 07/02/2004 33561 Injection Completed 06/18/2004 73240 Injection Completed 06/04/2004 82905 Injection Completed 05/21/2004 51412 Injection Completed 05/09/2004 56806 Pulmonary Function Test Completed 05/07/2004 53436 Injection Completed 04/20/2004 54121 Injection Completed 04/16/2004 13306 Extract 1-10 Completed 04/06/2004 97170 Injection Completed 03/21/2004 95422 Injection Completed 03/07/2004 91709 Injection Completed 02/24/2004 17719 Injection Completed 01/30/2004 37454 Injection Completed 01/16/2004 83115 Injection Completed 01/09/2004 35610 Injection Completed 01/02/2004 09447 Injection Completed 12/16/2003 85172 Injection Completed 12/02/2003 16227 Injection Completed 11/28/2003 27079 Extract 1-10 Completed 11/18/2003 99280 Injection Completed 11/07/2003 94822 Injection Completed 10/24/2003 98211 Injection Completed 10/12/2003 96392 Injection Completed 09/28/2003 56820 Injection Completed 08/22/2003 06766 Injection Completed 08/10/2003 36105 Injection Completed 07/25/2003 11309 Injection Completed 07/13/2003 95299 Injection Completed 06/27/2003 47629 Injection Completed 06/22/2003 56743 Extract 1-10 Completed 06/13/2003 74213 Injection Completed 05/30/2003 36008 Injection Completed 05/16/2003 45904 Injection Completed 05/02/2003 47507 Injection Completed 04/20/2003 04406 Injection Completed Encounters Type Date Location Provider CPT E/M Dx Office Visit 05/18/2018 4:00p ANGIE Montez 35706 J30.1 J30.81 J30.89 J30.2 Office Visit 11/17/2017 4:00p ANGIE Montez 72208 J45.30 J30.89 J30.81 J30.2 J30.1 Office Visit 10/27/2017 3:40p ANGIE Montez 30301 J45.30 J30.1 J30.2 J30.81 J30.89 Office Visit 10/01/2016 3:20p Yamilet Mackey M.D. 16526 J30.1 Z68.33 J45.30 Office Visit 09/25/2015 4:20p Yamilet Mackey M.D. 41720 Z68.32 J30.1 J45.30 Office Visit 03/27/2015 4:20p Yamilet Mackey M.D. 83571 786.2 477.8 V85.33 Office Visit 12/19/2014 4:20p Yamilet Mackey M.D. 92896 477.8 786.2 Office Visit 10/10/2014 11:40a Yamilet Mackey M.D. 20588 477.8 786.2 Office Visit 10/25/2013 4:00p [place] ANGIE Briscoe 42396 477.8 493.00 477.0 Office Visit 09/08/2013 4:20p ANGIE Null 84433 477.8 477.0 493.00 Office Visit 01/15/2013 4:00p [place] EMILY Fung 86997 477.8 477.0 493.00 Office Visit 11/21/2008 4:15p [place] [address] 477.0 477.8 Plan of Care Future Appointment(s):06/18/2018 4:00 pm - ANGIE An at Ncknnx5501/2018 3:30 pm - Allergy Injection at Vfgrpd8505/18/2018 - JULI An CJ30.1 Allergic rhinitis due to klhdnvR76.81 Allergic rhinitis due to animal ( cat) (dog) hair and xhljnzZ13.89 Other allergic fwbmknjtH57.2 Other seasonal allergic rhinitisFollow up:1 month with [...]
[2018-05-21 16:31] VITALS: BP 133/63
--- NOTE | 2018-05-21 16:39 | UC ---
Back Pain HPI - HPI Summary HPI Summary: A 58 y/o female [place] [facility] [place]/o lower back pain reaching 9/10 in severity. As per triage, "Lower back pain, mostly on left, states that pain radiates down left leg. x2 days Denies any numbness or tingling or loss of bowel or bladder control. 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 According to the patient, she has been experiencing lower back pain (more so on left side) that radiates to her legs. The pain started on Friday (05/19/2018) with it getting worse the next day and it has not resolved since. She stated that she hasn't been getting any sleep which has led to the development of a headache. She denies any weakness, numbness, difficulty controlling bowels, any urinary symptoms, fevers, chills, however she does have her normal baseline abdominal pain. It was noted that the patient does not have pain when sitting upright, however, the pain is apparent with movement or in a laying position. It was further noted that during the day on Friday, the patient was at work, moving around and exerting herself. She tried pain patches and Tylenol, but nothing has alleviated her symptoms. Initially, she thought it was soreness with the extra workload, but it never went away. Today, she took Tylenol every 4 hours. Patient just started a new inhaler on Friday. She is not able to take NSAIDS because she hallucinates with intake. PMHx of GERD, IBS, asthma and migraine, denies COPD. FHx of [place], denies DM. SHx of position at [employer]. - History of Current Complaint Chief Complaint: UCBackPain Stated Complaint: BACK PAIN Time Seen by Provider: 05/21/18 16:20 Hx Obtained From: Patient Onset/Duration: Sudden Onset, Lasting Days, Still Present, Worse Since Timing: Constant Severity Initially: Severe Severity Currently: Severe Pain Intensity: 9 Pain Scale Used: 0-10 Numeric Back Pain: Is Discrete @ - Lower back, more so on left. Aggravating Factor(s): Movement, Bending Alleviating Factor(s): Position - Sitting upright. Associated Signs And Symptoms: Positive: Negative - Allergies/Home Medications Allergies/Adverse Reactions: Allergies Allergy/AdvReac Type Severity Reaction Status Date / Time [place] And Derivatives Allergy Eyes Verified 05/21/18 16:23 Itchy/Swollen/Red/Watery ibuprofen Allergy Hallucinati Verified 05/21/18 16:34 ons Penicillins Allergy Unknown Verified 05/21/18 16:34 Reaction Details Sulfa (Sulfonamide Allergy Constipatio Verified 05/21/18 16:34 Antibiotics) n PMH/Surg Hx/FS Hx/Imm Hx Respiratory History: COPD - NEGATIVE, Asthma - POSITIVE GI/ History: Gastroesophageal Reflux - POSITIVE - Surgical History Surgical History: Yes Surgery Procedure, Year, and Place: HYSTERECTOMY. GALLBLADDER. MIKEL FUNDOPLICATION more than 20 years ago. LAPARSCOPIC - Family History Known Family History: Positive: Hypertension, Other - [place] Negative: Cardiac Disease, Diabetes - Social History Alcohol Use: None Substance Use Type: None Smoking Status (MU): Never Smoked Tobacco Review of Systems Constitutional: Negative Skin: Negative Eyes: Negative ENT: Negative Respiratory: Negative Cardiovascular: Negative Gastrointestinal: Negative Genitourinary: Negative Motor: Negative Neurovascular: Negative Musculoskeletal: Other: - POSITIVE: Back pain Neurological: Headache Psychological: Negative Is Patient Immunocompromised?: No All Other Systems Reviewed And Are Negative: Yes Physical Exam - Summary Physical Exam Summary: General: well-appearing, no pain distress Skin: warm, color reflects adequate perfusion, dry Head: normal Eyes: EOMI, CHRISTOPHER ENT: normal Neck: supple, nontender Respiratory: CTA, breath sounds present Cardiovascular: RRR Abdomen: soft, nontender Bowel: present Musculoskeletal: strength/ROM intact, tenderness to palpation in the lower back and left buttock sciatic distribution Neurological: sensory/motor intact, A&O x3 Psychological: affect/mood appropriate Triage Information Reviewed: Yes Vital Signs: Initial Vital Signs Temp 99.3 F 05/21/18 16:24 Pulse 64 05/21/18 16:24 Resp 18 05/21/18 16:24 BP 133/63 05/21/18 16:24 Pulse Ox 99 05/21/18 16:24 Vital Signs Reviewed: Yes Back Pain Course/Dx - Course Course Of Treatment: Medications reviewed. Allergies noted. NO NEURO DEFICIT. NO UTI SX. NO ABD PAIN. F/U PMD; RECHECK SOONER IF WORSE. - Differential Dx/Diagnosis Provider Diagnoses: LOW BACK PAIN. LEFT LUMBAR RADICULOPATHY Discharge - Sign-Out/Discharge Documenting (check all that apply): Patient Departure - DISCHARGE All imaging exams completed and their final reports reviewed: No Studies - Discharge Plan Condition: Stable Disposition: HOME Prescriptions: Cyclobenzaprine TAB* [Flexeril 10 MG TAB*] 10 mg PO TID PRN #15 tab MDD 3 PRN Reason: Pain oxyCODONE/Acetamin 5/325 MG* [Percocet 5/325 TAB*] 1 tab PO Q4H PRN #20 tab MDD 6 PRN Reason: Pain Patient Education Materials: Acute Low Back Pain (ED), Lower Back Exercises (ED ) Forms: *Work Release Referrals: Rene Valdovinos MD [Medical Doctor] - Abdias Paul MD [Primary Care Provider] - Additional Instructions: FOLLOW UP WITH YOUR DOCTOR. GET RECHECKED FOR ANY WORSENING OF YOUR CONDITION; PAIN, WEAKNESS, DIFFICULTY CONTROLLING BOWEL OR BLADDER OR QUESTIONS OR CONCERNS. - Billing Disposition and Condition Condition: STABLE Disposition: Home - Attestation Statements Document Initiated by oTd: Yes Documenting Scribe: Jas Franco Provider For Whom Tod is Documenting (Include Credential): Jamshid Pablo MD Scribe Attestation: Jas Resendez scrmaryloued for Jamshid Pablo MD on 05/21/18 at 1754. Scribe Documentation Reviewed: Yes Provider Attestation: The documentation as recorded by the Jas guzman accurately reflects the service I personally performed and the decisions made by me, Jamshid Pablo MD
== END 2018-05-21 16:54 | disposition home or self-care (01) ==
LOC: UCEAST 16:07
DX: M54.16 Radiculopathy, lumbar region (principal); M54.5 Low back pain; M79.605 Pain in left leg; J45.909 Unspecified asthma, uncomplicated; K58.9 Irritable bowel syndrome, unspecified; Z88.8 Allergy status to other drugs, medicaments and biological substances; Z88.0 Allergy status to penicillin; Z88.2 Allergy status to sulfonamides; Z91.018 Allergy to other foods
CPT/HCPCS: 99212; G0463

== ENCOUNTER 2019-06-10 06:37 | Emergency (ER) | payer OTHER ==
[2019-06-10] MEDS ORDERED: Aspirin 81 mg CHEW TAB* 81 MG TAB.CHEW PO ONE (06:40)
--- NOTE | 2019-06-10 06:42 | ED ---
HPI Chest Pain - HPI Summary HPI Summary: Pt. is a 59 y.o female who presents to the ER for evaluation after an episode of chest pain that occurred a few minutes before 0600 today. Pt. states she was driving when she developed sharp left sided chest pain. Patient notes episode lasted about 10 minutes and then resolved. Patient states pain did not radiate into arms or neck/head. Patient denies associated symptoms of lightheadedness, dizziness, diaphoresis, nausea or vomiting. Patient notes she did feel a bit short of breath when patient was present but states it was secondary to pain. Past medical history of depression, hyperlipidemia, GERD, and asthma. Patient denies cardiac history. She thinks she may have had a stress test in the past but is unsure. Patient notes family history of her father having a heart attack in his late 40s. Patient also notes she has been dealing with a respiratory infection and is currently on azithromycin. Symptoms are moderate in severity. No current modifying factors. - History of Current Complaint Time Seen by Provider: 06/10/19 06:42 Hx Obtained From: Patient - Allergy/Home Medications Allergies/Adverse Reactions: Allergies Allergy/AdvReac Type Severity Reaction Status Date / Time [place] And Derivatives Allergy Eyes Verified 06/10/19 06:56 Itchy/Swollen/Red/Watery ibuprofen Allergy Hallucinati Verified 06/10/19 06:56 ons Penicillins Allergy Unknown Verified 06/10/19 06:56 Reaction Details Sulfa (Sulfonamide Allergy Constipatio Verified 06/10/19 06:56 Antibiotics) n Home Medications: Home Medications Budesonide/Formote 160/4.5(NF) [Symbicort 160/4.5 (NF)] 1 puff INH BID 06/10/19 [History Confirmed 06/10/19] Fenofibrate(NF) [Tricor(NF)] 48 mg PO DAILY 06/10/19 [History Confirmed 06/10/19 ] Fexofenadine (NF) [[place] 180 (NF)] 180 mg PO DAILY 06/10/19 [History Confirmed 06/10/19] Tiotropium [place] [Spiriva Respimat] 1.25 mcg IN DAILY 06/10/19 [History Confirmed 06/10/19] raNITIdine HCl [Ranitidine HCl] 150 mg PO DAILY 06/10/19 [History Confirmed ] PMH/Surg Hx/FS Hx/Imm Hx Previously Healthy: Yes Endocrine/Hematology History: Denies: Hx Diabetes, Hx Thyroid Disease Cardiovascular History: Denies: Hx Hypertension, Hx Pacemaker/ICD Respiratory History: Reports: Hx Asthma Denies: Hx Chronic Obstructive Pulmonary Disease (COPD) GI History: Reports: Hx Gastroesophageal Reflux Disease, Hx Irritable Bowel Denies: Hx Ulcer History: Denies: Hx Renal Disease Sensory History: Denies: Hx Hearing Aid Psychiatric History: Reports: Hx Anxiety, Hx Depression Denies: Hx Panic Disorder - Cancer History Hx Chemotherapy: No Hx Radiation Therapy: No - Surgical History Surgery Procedure, Year, and Place: HYSTERECTOMY. GALLBLADDER. MIKEL FUNDOPLICATION more than 20 years ago. LAPARSCOPIC Infectious Disease History: Denies: Hx Hepatitis, Hx Human Immunodeficiency Virus (HIV) - Family History Known Family History: Positive: Cardiac Disease, Hypertension, Other - [place] Negative: Diabetes - Social History Occupation: Employed Full-time Lives: With Family Alcohol Use: None Substance Use Type: Reports: None Smoking Status (MU): Never Smoked Tobacco Review of Systems Constitutional: Negative Negative: Fever, Chills ENT: Negative Positive: Chest Pain. Negative: Palpitations Respiratory: Negative Negative: Shortness Of Breath, Cough Gastrointestinal: Negative Negative: Abdominal Pain, Vomiting, Diarrhea Musculoskeletal: Negative Skin: Negative Neurological: Negative All Other Systems Reviewed And Are Negative: Yes Physical Exam Triage Information Reviewed: Yes Vital Signs Reviewed: Yes Appearance: Positive: Well-Appearing - Pt. sitting on bed in NAD. Skin: Positive: Warm, Dry Head/Face: Positive: Normal Head/Face Inspection Eyes: Positive: Normal, EOMI Neck: Positive: Supple Respiratory/Lung Sounds: Positive: Clear to Auscultation, Breath Sounds Present. Negative: Rales, Rhonchi, Stridor, Wheezes Cardiovascular: Positive: Normal, RRR. Negative: Murmur Abdomen Description: Positive: Nontender, Soft Musculoskeletal: Negative: Edema Left, Edema Right Neurological: Positive: Normal, CN Intact II-III Psychiatric: Positive: Affect/Mood Appropriate Diagnostics - Laboratory Result Diagrams: 06/10/19 07:00 06/10/19 07:00 Lab Statement: Any lab studies that have been ordered have been reviewed, and results considered in the medical decision making process. Chest Pain Course/Dx - Course Course Of Treatment: Pt. presenting after an episode of chest pain at rest. She is currently pain free. VS stable. ASA given. ECG done at 0639 shows a sinus rhythm of 61bpm, normal axis, no ST elevation or depression. CXR negative per radiology. Labs including troponin x 2 negative. On re-exam pt. is resting comfortably and has no CP in the ED. HEART is 3 which is low risk for cardiac event. Will dc home to closely f.u with PCP for further evaluation and for outpt. stress test. Pt. given warning signs to return. Pt. understands and agrees with plan. - Chest Pain Differential Diagnosis/HQI/PQRI: Acute AR, ACS, Chest Wall, GI Disease, Lower Respiratory Infection - Diagnoses Provider Diagnoses: Atypical chest pain Discharge ED - Sign-Out/Discharge Documenting (check all that apply): Patient Departure Patient Received Moderate/Deep Sedation with Procedure: No - Discharge Plan Condition: Good Disposition: HOME Patient Education Materials: Chest Pain (ED) Referrals: Abdias Paul MD [Primary Care Provider] - Additional Instructions: Call your PCP today for a follow up appointment within one week for further testing Return to ER if symptoms change or worsen - Billing Disposition and Condition Condition: GOOD Disposition: Home
[2019-06-10 07:07] LABS: ABS Eosinophils 0.1 10^3/ul (0-0.6); ABS Lymphocytes 2.2 10^3/ul (1.0-4.8); ABS Monocytes 0.4 10^3/ul (0-0.8); ABS Neutrophils 2.2 10^3/ul (1.5-7.7); Eosinophil % 2.6 %; Hematocrit 36 % (35-47); Hemoglobin 12.3 g/dL (12.0-16.0); Lymphocyte % 44.4 %; Mean Corpuscular HGB Conc 34 g/dL (31-36); Mean Corpuscular Hemoglobin 31 pg (27-31); Mean Corpuscular Volume 90 fL (80-97); Mean Platelet Volume 7.6 fL (7.4-10.4); Platelet Count 348 10^3/uL (150-450); Red Blood Count 4.05 10^6 /uL (3.70-4.87); Red Cell Distribution Width 13 % (10-15)
[2019-06-10 07:15] LABS: Activated Partial Thrombo Time 31.9 seconds (26.0-38.0); INR 1.01 (0.82-1.09)
[2019-06-10 07:29] LABS: Potassium 4.3 mmol/L (3.5-5.0)
[2019-06-10 07:30] LABS: BUN/Creatinine Ratio 18.4 (8-20); Calcium 9.5 mg/dL (8.6-10.3); EGFR African American 70.5 (>60); EGFR Non-African American 58.3 (>60); Magnesium 2.1 mg/dL (1.9-2.7); Total Protein 6.4 g/dL (6.4-8.9)
[2019-06-10 07:31] LABS: Albumin 4.1 g/dL (3.2-5.2); Albumin/Globulin Ratio 1.8 (1-3); Globulin 2.3 g/dL (2-4); Total Bilirubin 0.3 mg/dL (0.2-1.0)
[2019-06-10 10:51] VITALS: BP 122/69
== END 2019-06-10 10:50 | disposition home or self-care (01) ==
LOC: ED 06:37
DX: R07.89 Other chest pain (principal); J45.909 Unspecified asthma, uncomplicated; K21.9 Gastro-esophageal reflux disease without esophagitis; Z90.710 Acquired absence of both cervix and uterus; Z79.899 Other long term (current) drug therapy; Z88.6 Allergy status to analgesic agent; Z88.0 Allergy status to penicillin; Z88.2 Allergy status to sulfonamides
CPT/HCPCS: 36415; 71045; 80053; 83605; 83735; 84484; 85025; 85610; 85730; 93005; 99283; A9270-GY